=== PATIENT | male | born 1945 | race Caucasian/White ===

== ENCOUNTER 2019-03-29 11:37 | Observation (INO) | payer MEDICARE, SELFPAY ==
[2019-03-29] VITALS (8 sets, daily range): BP systolic 106–126; BP diastolic 59–84; PULSE 74–81; RESP 14–27; TEMP 36.6–37.2; O2SAT 94–100; BMI 23.5
--- NOTE | ~2019-03-29 | XR_ITS ---
EXAMINATION: XR chest 2V DATE: 03/29/2019 13:00 INDICATION: Weakness. Fall. TECHNIQUE: Frontal and lateral views of the chest were obtained. COMPARISON: Chest 2 views 01/31/2019 FINDINGS: There are interstitial opacities in left mid and lower lung zones. No pleural effusion or p neumothorax. The heart size is normal. There is a right internal jugular port with tip at superior ca voatrial junction. IMPRESSION: 1. Interstitial opacities in left mid and lower lung zones, consistent with mild pulmonary edema vers us mild atelectasis. Reviewed, dictated and finalized at location A. CTOR OF STRATEGIC COMMUNICATIONS IMPRESSION: 1. Interstitial opacities in left mid and lower lung zones, consistent with mil d pulmonary edema versus mild atelectasis.
[2019-03-29 12:23] LABS: Basophils Percent Auto 0.2 % (0.2-1.2); Eosinophils Absolute Auto 0.1 K/mm3 (0-0.3); Eosinophils Percent Auto 2.3 % (0-4.4); Hematocrit 35.8 % (42.0-52.0); Immature Granulocyte Absolute 0.05 K/mm3 (0.00-0.031); Immature Granulocyte Percent A 0.9 % (0-0.5); Lymphocytes Percent Auto 13.2 % (18.3-44.2); Mean Corpuscular HGB Conc 33.5 g/dl (32-36); Mean Corpuscular Hemoglobin 31.3 pg (26-34); Mean Corpuscular Volume 93.5 fl (80-100); Mean Platelet Volume 8.5 fl (7.4-10.4); Monocytes Absolute Auto 0.7 K/mm3 (0.1-0.6); Monocytes Percent Auto 12.3 % (2.6-8.5); Neutrophils Absolute Auto 3.8 K/mm3 (1.3-6.7); Neutrophils Percent Auto 71.1 % (45.5-73.1); Platelet Count Result 215 k/mm3 (150-375); Red Blood Count 3.83 M/mm3 (4.6-6.20); White Blood Count 5.3 K/mm3 (4.5-10.0)
[2019-03-29 12:34] LABS: Alanine Aminotransferase 40 U/L (4-50); Albumin Level 3.8 g/dL (3.5-5.1); Alkaline Phosphatase 132 U/L (38-126); Aspartate Amino Transferase 46 U/L (17-59); Bilirubin,Total 0.6 mg/dL (0.2-1.3); Blood Urea Nitrogen 17 mg/dL (9-20); Calcium 9.6 mg/dL (8.4-10.2); Carbon Dioxide 28 mmol/L (22-30); Chloride 91 mmol/L (98-107); Estimated CRCL calculation 76 ml/min; Estimated Glomerular Filt Rate > 60; Glucose 119 mg/dL (75-110); Potassium 4.7 mmol/L (3.4-5.0); Sodium 132 mmol/L (137-145)
--- NOTE | 2019-03-29 13:27 | ECG_ITS ---
Measurements Intervals [place] Rate: 74 P: 29 TX: 157 QRS: -3 QRSD: 89 T: 10 QT: 404 QTc: 451 Interpretive Statements SINUS RHYTHM BORDERLINE T WAVE ABNORMALITY- INFERIOR LEADS BASELINE ARTIFACT- I, II, III, AVR, AVL, AVF, V2, V4 BORDERLINE ECG Electronically Signed On 03-29-2019 14:17:26 [employer]EL[employer] WORKER by Reji Cotto D.O.
--- NOTE | 2019-03-29 13:30 | ED.WEAKNESS ---
HPI - Weakness General Chief complaint: Fall Stated complaint: weakness, fall Time Seen by Provider: 03/29/19 13:24 Source: patient, family (pt's ) and RN notes reviewed Mode of arrival: ambulatory Limitations: no limitations History of Present Illness HPI Narrative: Pt is a 73 y/o male with a Hx of esophageal cancer, who presents to the ED with c/o generalized weakness. According to the pt's , he was recently hospitalized for dehydration. She notes that he was subsequently placed in a rehabilitation facility, and states that he was discharged home yesterday. Pt's notes that he has been having increasing generalized weakness and trouble walking. She also states that the pt has had a decreased appetite and hasn't hardly eaten or drank anything recently. Pt's notes that he fell in their bathroom around 2 AM this morning due to him being too weak to hold himself up. He denies any injuries during the fall. Pt currently denies any fever, chills, vomiting, cough, or other symptoms. His notes that she called his PCP, Dr. De La Fuente, due to his symptoms, and states that she was advised to bring him to the ED to have him sent back to a rehabilitation facility. MD Complaint: generalized weakness Onset (ago): unknown Location: generalized Severity: severe Context: other (recent hospitalization) Associated symptoms: loss of appetite and other (decreased intake) Related Data Home Medications Medication Instructions Recorded Confirmed pantoprazole 40 mg PO QAM 01/31/19 03/29/19 acetaminophen 650 mg PO Q4-6H PRN 03/29/19 03/29/19 cyanocobalamin (vitamin B-12) 1,000 mcg DAILY 03/29/19 03/29/19 dabigatran etexilate 150 mg PO Q12H 03/29/19 03/29/19 loperamide 2 mg PO Q8-10H 03/29/19 03/29/19 metoprolol tartrate 25 mg PO DAILY 03/29/19 03/29/19 ondansetron HCl [Zofran] 4 mg PO Q6-8H PRN 03/29/19 03/29/19 sodium chloride 1,000 mg PO DAILY 03/29/19 03/29/19 Allergies Allergy/AdvReac Type Severity Reaction Status Date / Time No Known Allergies Allergy Verified 03/29/19 14:01 Review of Systems Review of Systems: All systems reviewed & are unremarkable except as noted in HPI and below Constitutional: Constitutional: Reports poor appetite, Reports weakness (generalized) and Reports other (decreased intake) ENT: Denies headache(s) and Denies neck pain Cardiovascular: Cardiovascular: Denies chest pain and Denies dyspnea Respiratory: Respiratory: Denies cough and Denies dyspnea Gastrointestinal: Gastrointestinal: Denies abdominal pain, Denies diarrhea, Denies nausea and Denies vomiting Musculoskeletal: Musculoskeletal: Denies back pain and Denies neck pain Neurologic: Denies headache(s) and Denies weakness PMFSH Past Medical History Medical History (Updated 03/29/19 @ 22:04 by Rae Blevins MD) Ankle fracture Anxiety Barretts esophagus Depression Esophageal cancer Frequent UTI Gastroesophageal reflux disease Hard of hearing History of kidney stones Hx of radiation therapy Hypertension TIA (transient ischemic attack) Uses feeding tube Surgical History Surgical History History of cardiac catheterization History of repair of rotator cuff History of surgical removal of skin lesion Social History Social History (Updated 02/01/19 @ 00:44 by Angela Reis NP) Social History: the patient lives with his Keila who is the power associate attorney. Patient is a full code. He has 3 children. The patient quit smoking in 1966 when he smoked a pack cigarettes a day. He retired from [employer] but was working [employer] up until he was diagnosed with the cancer. Smoking status: Former smoker Tobacco type: cigarettes Second hand tobacco smoke exposure: Yes Smoking end date: 02/26/1967 Alcohol intake: unknown Substance use: never Gender identity (if verbalized by the patient): Male Spiritual care concerns: No Agree to blood products: Yes Exa
[2019-03-29] MEDS: SODIUM CHLORIDE 0.9% IV 1,000 ML 999 ML IV CONT (13:56)
[2019-03-29 14:14] LABS: Add Urine Microscopic? YES; Appearance Urine Clear (Clear); Bacteria Urine Trace /hpf; Bilirubin Urine Negative (Negative); Blood Urine Negative (Negative); Color Urine Yellow (Yellow); Glucose Urine UA Negative (Negative); Ketones Urine Negative (Negative); Leukocyte Esterase Ur Negative LEU/UL (Negative); Mucus Urine Rare /lpf; Nitrate Urine Negative (Negative); Protein Urine 1+ mg/dL (Negative); RBC Urine 0-2 /hpf (0-2); Specific Grav Ur 1.019 (1.001-1.035); Squamous Epithelial Cell Urine Rare /hpf (Few); WBC Urine 0-3 /hpf
--- NOTE | 2019-03-29 15:29 | PCCCNOTE ---
Spoke with and patient regarding patients preferences for discharge disposition. states that patient is unsteady on feet and that she is unable to care for him at home until he is stronger. He was discharged from [facility] on 03/28/2019 after 10 days and had been hospitalized at [facility] for a week prior to that. If patient needs to go to rehab, patient and would prefer to go to [facility]. Spoke with Nadege at [facility]. She wants to review the case notes from [place] and patient needs obra screen/[employer] auth before she can commit to bed availability for this patient
[2019-03-29] MEDS: SODIUM CHLORIDE 0.9% IV 1,000 ML 125 ML IV CONT (17:39)
--- NOTE | 2019-03-29 17:43 | ADMGEN ---
This patient, Riley Marrero Jr, was admitted to 3 [facility] Surg Room 302-01. Patient/family oriented to hospital policies and general routines including ID bracelet, bed and alarms, visiting hours, pain management, procedures, bathroom and other care routines, personal items, smoking policy, room service/diet, and visiting hours. Valuables list has been completed. Information on how to activate the Rapid Response Team has been discussed. Patient/Family are encouraged to report perceived risks to care and to ask questions if they do not understand what they are told or what they should do.
[2019-03-30] MEDS: SODIUM CHLORIDE 0.9% IV 1,000 ML 125 ML IV CONT ×3 (01:37→17:35)
[2019-03-30 06:00] VITALS: BP 126/78; PULSE 82; RESP 18; TEMP 37.2; O2SAT 95
[2019-03-30] MEDS: DABIGATRAN ETEXILATE 150 MG CAPSULE PO ×2 (12:38→21:11)
[2019-03-30] MEDS: SODIUM CHLORIDE 1 GM TABLET PO (12:38)
[2019-03-30] MEDS: PANTOPRAZOLE 40 MG TABLET PO (12:39)
[2019-03-30] MEDS: CYANOCOBALAMIN 1,000 MCG TABLET 1000 MCG FEED TUBE (12:39)
[2019-03-30 14:00] VITALS: BP 130/73; PULSE 79; RESP 18; TEMP 37.5; O2SAT 98
[2019-03-30 14:09] VITALS: PULSE 82
[2019-03-30] MEDS: METOPROLOL TARTRATE 25 MG TABLET FEED TUBE (14:09)
--- NOTE | 2019-03-30 14:43 | PM.IMHP ---
H&P: HPI History of Present Illness Chief complaint: weakness Narrative: Date of visit 03/30/2019. 1000. Riley Marrero Jr is a 73 year old white male with recently treated esophageal CA with chemo and radiation and follow-up PET reported is no evidence of disease according to . He was hospitalized here in early January for debility and UTI. Was transferred to extended care and eventually hospital in [place] for further rehab. While there had a bout of atrial fibrillation and now on thrombin inhibitor Pradaxa and the also had EGD with esophageal dilatation had removal of scar tissue. He continued have poor p.o. intake and had been using tube feedings through his PEG to but none the less 48 hours. His discharge from the rehab unit had [place] 03/28/19 and since he has been home has not been eating or drinking much and early a.m. per fell and was unable to help him adequately and had him brought to the emergency room for evaluation. She thinks he still too weak and needs further rehab. there is been no fever no chills, diarrhea, or urinary symptoms. Just anorexia and failure to thrive Review of Systems Review of Systems: Narrative: Constitutional: As stated no fever no chills but decreased appetite both fluids and solids and he is not sure exactly how much weight he has lost Eye no deficient [place] Mouth of pharyngitis laryngitis Pulmonary no shortness breath wheezing or cough GI as per present illness some loose stools intermittently with the tube feedings no dysuria or hematuria stated Muscle skeletal no particular joint discomfort Integument no skin breakdown rashes Neuropsych no seizures no syncope just generalized weakness Remainder review of systems if not documented here were evaluated found to be negative [facility] Past Medical History Medical History (Updated 03/30/19 @ 14:53 by Eliceo Goodman MD) Ankle fracture Anxiety Barretts esophagus Depression Esophageal cancer Frequent UTI Gastroesophageal reflux disease Hard of hearing History of kidney stones Hx of radiation therapy Hypertension TIA (transient ischemic attack) Uses feeding tube Surgical History Surgical History History of cardiac catheterization History of repair of rotator cuff History of surgical removal of skin lesion Social History Social History (Updated 02/01/19 @ 00:44 by Angela Reis NP) Social History: the patient lives with his Keila who is the power automatic stacker. Patient is a full code. He has 3 children. The patient quit smoking in 1966 when he smoked a pack cigarettes a day. He retired from [employer] but was working [employer] up until he was diagnosed with the cancer. Smoking status: Former smoker Tobacco type: cigarettes Second hand tobacco smoke exposure: Yes Smoking end date: 02/26/1967 Alcohol intake: unknown Substance use: never Gender identity (if verbalized by the patient): Male Spiritual care concerns: No Agree to blood products: Yes Meds Home Medications and Allergies Home Medications Medication Instructions Recorded Confirmed Type pantoprazole 40 mg PO QAM 01/31/19 03/29/19 History acetaminophen 650 mg PO Q4-6H PRN 03/29/19 03/29/19 History cyanocobalamin (vitamin B-12) 1,000 mcg DAILY 03/29/19 03/29/19 History dabigatran etexilate 150 mg PO Q12H 03/29/19 03/29/19 History loperamide 2 mg PO Q8-10H 03/29/19 03/29/19 History metoprolol tartrate 25 mg PO DAILY 03/29/19 03/29/19 History ondansetron HCl [Zofran] 4 mg PO Q6-8H PRN 03/29/19 03/29/19 History sodium chloride 1,000 mg PO DAILY 03/29/19 03/29/19 History Allergies Allergy/AdvReac Type Severity Reaction Status Date / Time No Known Allergies Allergy Verified 03/29/19 14:01 Vital Signs Vital Signs - 24 hr 03/29/19 15:01 03/29/19 15:44 03/29/19 16:31 Temperature Pulse Rate 74 77 77 Respiratory Rate 15 14 15 Blood Pressure 120/70 110/59 L 11
[2019-03-30 20:39] VITALS: PULSE 73; RESP 18; O2SAT 92
[2019-03-30 21:23] VITALS: BP 104/58; PULSE 73; RESP 18; TEMP 37.1; O2SAT 96
[2019-03-31] MEDS: SODIUM CHLORIDE 0.9% IV 1,000 ML 125 ML IV CONT ×2 (00:20→08:25)
[2019-03-31] MEDS: METOPROLOL TARTRATE 25 MG TABLET FEED TUBE ×2 (00:46→12:36)
[2019-03-31 06:00] VITALS: BP 120/60; PULSE 74; RESP 18; TEMP 37.1; O2SAT 94
[2019-03-31] MEDS: DABIGATRAN ETEXILATE 150 MG CAPSULE PO ×2 (08:27→20:23)
[2019-03-31] MEDS: PANTOPRAZOLE 40 MG TABLET PO (08:27)
[2019-03-31] MEDS: CYANOCOBALAMIN 1,000 MCG TABLET 1000 MCG FEED TUBE (08:27)
[2019-03-31] MEDS: SODIUM CHLORIDE 1 GM TABLET PO (08:27)
[2019-03-31 12:36] VITALS: PULSE 64
[2019-03-31 14:00] VITALS: BP 112/64; PULSE 65; RESP 18; TEMP 36.4; O2SAT 94
[2019-03-31 14:51] VITALS: BMI 23.5
--- NOTE | 2019-03-31 15:34 | PCNSR ---
On 03/31/19, the student, Aleah Raya, provided care and completed [facility] documentation on this patient. I have reviewed the student's documentation and agree with the findings.
--- NOTE | 2019-03-31 16:42 | PM.IMPN ---
Progress Note: A&P Assessment and Plan (1) Weakness: Code(s): R53.1 - Weakness Status: Acute Assessment and Plan: Still generally debilitated and has been evaluated by PT and OT. Apparently today walked 100 ft with standby assist Doubt he will qualify for rehab but care coordination is petitioning insurance (2) Anorexia: Code(s): R63.0 - Anorexia Status: Acute Assessment and Plan: Patient still not eating well. When questioned further about swallowing on admission it is almost as if he is afraid to swallow and has become somewhat psychological coupled with his depression. EGD before showed no obstruction he was dilated too (3) Esophageal cancer: Code(s): C15.9 - Malignant neoplasm of esophagus, unspecified Status: Chronic Assessment and Plan: By history follow-up PET scan within the last month showed no residual disease, completed course of chemo and radiation follow-up by Dr. Redding [facility] (4) Atrial fibrillation: Code(s): I48.91 - Unspecified atrial fibrillation Status: Acute Assessment and Plan: By history while inpatient at [facility] and on low-dose beta-brad and anticoagulant which will continue (5) DVT prophylaxis: Code(s): Z29.9 - Encounter for prophylactic measures, unspecified Status: Acute Assessment and Plan: Pradaxa Subjective Date/time seen: 03/31/19 16:42 Interval history: Date of visit 03/31/2019. 73-year-old white male status post treatment for esophageal CA with follow-up PET scan negative per history of admitted with decreased oral intake weakness and fall at home within 24 hours of discharge of rehab unit at [place]. adament that patient needs more therapy and still having trouble swallowing. Apparently had EGD while at [place] with dilatation and removal is some scar tissue from previous radiation. Does have PEG tube to uses also. No real complaints today Exam Narrative: Exam Narrative: Blood pressure is 112/64 pulse is 66 afebrile Pupils equal reactive to light sclera anicteric Mouth mucosa less dry today Neck supple Lungs clear CV regular rate rhythm with occasional ectopic no murmurs Extremities without edema good distal pulses Abdomen soft nontender no mass, PEG the midline as before clean and dry Neuro alert pleasant cooperative no focal deficits generally weak Integument no skin breakdown rashes Affect very flat Objective Data Vital Signs Vital Signs: Vital Signs - 24 hr 03/30/19 20:39 03/30/19 21:23 03/31/19 06:00 Temperature 37.1 C 37.1 C Pulse Rate 73 73 74 Respiratory Rate 18 18 18 Blood Pressure 104/58 L 120/60 Pulse Oximetry 92 96 94 03/31/19 12:36 03/31/19 14:00 Temperature 36.4 C L Pulse Rate 64 65 Respiratory Rate 18 Blood Pressure 112/64 Pulse Oximetry 94 Intake/Output Intake/Output: Intake & Output 03/28/19 03/29/19 03/30/19 03/31/19 23:59 23:59 23:59 23:59 Intake Total 1740 4370 2760 Output Total 2276 900 Balance 1740 3276 3983 Meds/Results Medications: Active Medications Generic Name Dose Route Start Last Admin Trade Name Freq PRN Reason Stop Dose Admin Acetaminophen 650 mg 03/30/19 12:20 Tylenol Tablet FEED TUBE Q4-6H PRN Pain Cyanocobalamin 1,000 mcg 03/30/19 09:00 03/31/19 08:27 Vitamin B-12 Tab FEED TUBE 1,000 mcg DAILY LESIA Administration Dabigatran 150 mg 03/30/19 10:25 03/31/19 08:27 Pradaxa PO 150 mg Q12HR LESIA Administration Heparin Sodium (Beef Lung) 50 units 03/31/19 09:00 03/31/19 08:27 Heparin Flush 50 Units/5 Ml IV PUSH Not Given QAM LESIA Heparin Sodium (Beef Lung) 50 units 03/31/19 07:30 Heparin Flush 50 Units/5 Ml IV PUSH PRN PRN after intermittent infusion Heparin Sodium (Beef Lung) 50 units 03/31/19 07:30 Heparin Flush 50 Units/5 Ml IV PUSH PRN PRN after blood draws Heparin Sodium (Porcine) 500 unit
[2019-03-31 21:41] VITALS: BP 133/72; PULSE 72; RESP 18; TEMP 36.6; O2SAT 96
[2019-04-01 00:11] VITALS: PULSE 68
[2019-04-01] MEDS: METOPROLOL TARTRATE 25 MG TABLET FEED TUBE ×2 (00:11→12:59)
[2019-04-01 05:52] VITALS: BP 128/69; PULSE 69; RESP 16; TEMP 36.7; O2SAT 97
[2019-04-01] MEDS: SODIUM CHLORIDE 1 GM TABLET PO (08:22)
[2019-04-01] MEDS: CYANOCOBALAMIN 1,000 MCG TABLET 1000 MCG FEED TUBE (08:22)
[2019-04-01] MEDS: PANTOPRAZOLE 40 MG TABLET PO (08:24)
[2019-04-01] MEDS: DABIGATRAN ETEXILATE 150 MG CAPSULE PO (08:24)
[2019-04-01 08:30] VITALS: BP 108/64; PULSE 80; RESP 26; TEMP 37.4; O2SAT 96
[2019-04-01 12:55] VITALS: BP 124/70; PULSE 74
[2019-04-01 12:59] VITALS: PULSE 74
[2019-04-01 14:00] VITALS: BP 126/67; PULSE 68; RESP 26; TEMP 36.8; O2SAT 94
--- NOTE | 2019-04-01 14:35 | PM.DS ---
DS: Diagnosis Admitting Diagnosis Admitting Diagnosis: Weakness Discharge Diagnosis (1) Weakness: Code(s): R53.1 - Weakness Status: Acute Assessment and Plan: Still generally debilitated and has been evaluated by PT and OT. Apparently today walked 100 ft with standby assist did not qualify for SNF, so home with HH today. (2) Anorexia: Code(s): R63.0 - Anorexia Status: Acute Assessment and Plan: Patient still not eating well. When questioned further about swallowing on admission it is almost as if he is afraid to swallow and has become somewhat psychological coupled with his depression. EGD before showed no obstruction (3) Esophageal cancer: Code(s): C15.9 - Malignant neoplasm of esophagus, unspecified Status: Chronic Assessment and Plan: By history follow-up PET scan within the last month showed no residual disease, completed course of chemo and radiation [facility] (4) Atrial fibrillation: Code(s): I48.91 - Unspecified atrial fibrillation Status: Acute Assessment and Plan: By history while inpatient at [facility] and on low-dose beta-brad and anticoagulant which will continue (5) DVT prophylaxis: Code(s): Z29.9 - Encounter for prophylactic measures, unspecified Status: Acute Assessment and Plan: Pradaxa DS: Summary Hospital Course Reason for hospitalization: weakness Hospital Course: Treated for dehydration with IVF. Empiric antibiotics were discontinued when urine and blood cultures were negative. He had some diarrhea with his TF as outpatient, but that resolved as inpatient. He was falling at home, but was ambulating with PT with standby assit by day of discharge. Status at Discharge Overall status at discharge: patient is back to baseline Time Spent with Patient Time attestation: Total time spent providing and/or coordinating discharge services: Exam Narrative: Exam Narrative: Pupils equal reactive to light sclera anicteric Oral mucosa pink and moist Neck supple Lungs clear CV regular rate rhythm with occasional ectopy no murmurs Extremities without edema good distal pulses Abdomen soft nontender no mass, PEG site clean Neuro alert pleasant cooperative no focal deficits generally weak Integument no skin breakdown rashes Affect very flat DS: Data Data Completed and Pending Labs on day of discharge: Preliminary micro results at discharge 03/29/19 20:33 Blood Culture - Preliminary Blood 03/29/19 20:33 Blood Culture - Preliminary Blood Discharge Plan Discharge Attending physician on discharge: Eliceo Goodman Discharging Clinician: Miguel Sprague Patient Disposition: Home Health Service Activity: as tolerated Diet: as tolerated Discharge Instructions: Per Care Coordination, pt. will discharge home with [facility] . continue tube feedings 2-3 times per day Patient Instructions: Antibiotic Form, Weakness (DC) Stand Alone Forms: General Discharge Information Follow-up/Referrals: Fidel De La Fuente MD [Primary Care Provider] - 2 Weeks Emery Redding DO [Physician] - Keep Reg. Scheduled Appt. Discharge Medications: New mupirocin 2 % ointment 1 applic TOPICAL BID Qty: 15 RF: 0 Continued pantoprazole 40 mg Tablet,Delayed Release (Dr/Ec) 40 mg PO QAM RF: 0 loperamide 2 mg Capsule 2 mg PO Q8-10H RF: 0 ondansetron HCl [Zofran] 4 mg Tablet 4 mg PO Q6-8H PRN (Reason: Nausea) RF: 0 sodium chloride 1 gram Tablet 1,000 mg PO DAILY RF: 0 cyanocobalamin (vitamin B-12) 1,000 mcg Tablet 1,000 mcg DAILY RF: 0 acetaminophen 650 mg Tablet Extended Release 650 mg PO Q4-6H PRN (Reason: Pain) RF: 0 dabigatran etexilate 150 mg Capsule 150 mg PO Q12H RF: 0 Changed metoprolol tartrate 25 mg Tablet 25 mg PO BID Qty: 0 RF: 0 Date of admission: 03/29/19 16:13 Primary Car
--- NOTE | 2019-04-01 15:03 | PC.NURSE ---
On 04/01/19, the student, [Erika Paz ], provided care and completed [facility] documentation on this patient. I have reviewed the student's documentation and agree with the findings.
[2019-04-01] MEDS: HEPARIN SOD FLUSH 500 UNITS/5 ML SYRINGE IV PUSH (15:22)
== END 2019-04-01 17:33 | disposition home health service (06) ==
LOC: ANHED 16:07 → ANH3MEDSUR 16:54
PROVIDERS: Emergency Medicine; Admitting Provider Family Medicine; Emergency Provider Emergency Medicine; PCP Family Medicine; Visit Provider Internal Medicine
DX: E86.0 Dehydration (principal); R53.1 Weakness; R63.0 Anorexia; C15.9 Malignant neoplasm of esophagus, unspecified; Z93.1 Gastrostomy status; I48.91 Unspecified atrial fibrillation; F32.9 Major depressive disorder, single episode, unspecified; K21.9 Gastro-esophageal reflux disease without esophagitis; W19.XXXA Unspecified fall, initial encounter; Z79.02 Long term (current) use of antithrombotics/antiplatelets; Z87.891 Personal history of nicotine dependence; Z86.73 Personal history of transient ischemic attack (TIA), and cerebral infarction without residual deficits; Z92.21 Personal history of antineoplastic chemotherapy; Z92.3 Personal history of irradiation
CPT/HCPCS: 36415; 71046; 80053; 81001; 85025; 87040; 87081; 93005; 96360; 96361; 97110; 97116; 97161; 97165; 97530; 97535; 99285; A9270; G0378; J1642; J7030

== ENCOUNTER 2019-04-11 11:55 | Outpatient (CLI) | payer MEDICARE, SELFPAY ==
[2019-04-11 12:56] LABS: Alanine Aminotransferase 22 U/L (4-50); Albumin Level 3.9 g/dL (3.5-5.1); Alkaline Phosphatase 127 U/L (38-126); Aspartate Amino Transferase 34 U/L (17-59); Bilirubin,Total 0.6 mg/dL (0.2-1.3); Blood Urea Nitrogen 16 mg/dL (9-20); Calcium 9.9 mg/dL (8.4-10.2); Carbon Dioxide 28 mmol/L (22-30); Chloride 95 mmol/L (98-107); Estimated Glomerular Filt Rate > 60; Glucose 117 mg/dL (75-110); Potassium 4.8 mmol/L (3.4-5.0); Sodium 136 mmol/L (137-145)
== END 2019-04-11 11:56 | disposition home or self-care (01) ==
PROVIDERS: PCP Family Medicine; Visit Provider Family Medicine
DX: E86.0 Dehydration (principal)
CPT/HCPCS: 36415; 80053

== ENCOUNTER 2019-09-13 16:04 | Emergency (ER) | payer MEDICARE, SELFPAY ==
[2019-09-13 16:18] VITALS: BP 132/74; PULSE 79; RESP 18; TEMP 37.1; O2SAT 97
== END 2019-09-13 16:25 | disposition left against medical advice (07) ==
PROVIDERS: PCP Family Medicine
DX: R04.0 Epistaxis (principal)
CPT/HCPCS: 99199

== ENCOUNTER → 2019-12-02 10:16 | Outpatient (REF) | payer MEDICARE, SELFPAY | LOC: ANHLAB 10:16 | PROVIDERS: PCP Family Medicine; Visit Provider Nurse Practitioner | DX: D49.2 Neoplasm of unspecified behavior of bone, soft tissue, and skin (principal) | CPT/HCPCS: 88305; 88312; 88313 ==

== ENCOUNTER → 2020-01-26 07:42 | Outpatient (REF) | payer MEDICARE, SELFPAY | LOC: ANHLAB 07:42 | PROVIDERS: PCP Family Medicine; Visit Provider Nurse Practitioner | DX: C44.622 Squamous cell carcinoma of skin of right upper limb, including shoulder (principal); C44.619 Basal cell carcinoma of skin of left upper limb, including shoulder | CPT/HCPCS: 88305; 88331 ==

== ENCOUNTER 2020-04-30 15:31 | Outpatient (CLI) | payer MEDICARE, SELFPAY | END 2020-04-30 15:32 | disposition home or self-care (01) | LOC: ANHCOVIDVC 15:31 | PROVIDERS: PCP Family Medicine | DX: Z23 Encounter for immunization (principal) | CPT/HCPCS: 0001A; 91300 ==

== ENCOUNTER 2020-05-21 15:30 | Outpatient (CLI) | payer MEDICARE, SELFPAY | END 2020-05-21 15:31 | disposition home or self-care (01) | LOC: ANHCOVIDVC 15:30 | PROVIDERS: PCP Family Medicine | DX: Z23 Encounter for immunization (principal) | CPT/HCPCS: 0002A; 91300 ==

== ENCOUNTER 2020-06-05 10:09 | Emergency (ER) | payer MEDICARE, SELFPAY ==
[2020-06-05 10:32] VITALS: BP 130/80; PULSE 76; RESP 18; TEMP 37.3; O2SAT 96
--- NOTE | 2020-06-05 12:13 | PC.NURSE ---
call to waiting room. No answer.
--- NOTE | 2020-06-05 12:18 | PC.NURSE ---
Call to waiting room. No answer.
--- NOTE | 2020-06-05 12:36 | PC.NURSE ---
Call to waiting room. Checked bathroom and surrounding areas in waiting room. No answer x3 attempts. Attempt to call pt's visitor cell phone and goes directly to voicemail. Assume pt left without being seen.
== END 2020-06-05 12:36 | disposition left against medical advice (07) ==
LOC: ANHED 13:03
PROVIDERS: PCP Family Medicine
DX: Z53.21 Procedure and treatment not carried out due to patient leaving prior to being seen by health care provider (principal)
CPT/HCPCS: 99199

== ENCOUNTER 2020-11-30 10:47 | Outpatient (CLI) | payer MEDICARE, SELFPAY ==
--- NOTE | ~2020-11-30 | CT_ITS ---
EXAMINATION: CT chest high resolution [facility] EXAM DATE: 11/30/2020 11:28 INDICATION: R06.02 - Shortness of breath. Esophageal cancer. TECHNIQUE: Spiral CT of the chest without contrast. Axial, coronal and sagittal images of the chest were reviewed. Coronal maximum intensity pixel images of chest reviewed. The dose-length product ( DLP) for this examination was 250.63 mGy-cm. The exposure was tailored according to patient size (au to mA exposure control), and iterative reconstruction (ASIR) was used as additional dose reduction [place]. Comparison is made to prior examination from 09/03/2018. FINDINGS: There is a right-sided Chemo-Port. The SVC appears smaller in caliber than in 2019. There is subsegmental right lower lobe atelectasis/scarring, volume loss and calcification within this, has developed compared to 2019 CT. There is trace right pleural effusion and pericardial effusion. No i ntralobular septal thickening on the HRCT. Tracheobronchial tree is patent. There is no mediastinal , hilar or axillary lymphadenopathy. There is no pneumothorax. Heart normal in size. There is m oderate to severe coronary arterial calcification, arterial sclerosis. There is small sliding gastroe sophageal hiatal hernia. There is moderate thoracic spondylosis without osteoblastic or osteolytic l esions identified. IMPRESSION: 1. Right lower lobe medial segmental scarring/atelectasis. 2. Trace pericardial, right pleural effusions. 3. Small hiatal hernia. Reviewed, dictated and finalized at location A.
== END 2020-11-30 10:48 | disposition home or self-care (01) ==
LOC: ANHIMG 10:55
PROVIDERS: PCP Family Medicine; Visit Provider Internal Medicine Critical Care Medicine
DX: R06.02 Shortness of breath (principal); K44.9 Diaphragmatic hernia without obstruction or gangrene; J90 Pleural effusion, not elsewhere classified
CPT/HCPCS: 71250

== ENCOUNTER 2020-12-01 12:39 | Outpatient (CLI) | payer MEDICARE, SELFPAY ==
--- NOTE | 2020-12-06 13:33 | WPDSIXMINUTE ---
Six Minute Walk Procedure Procedure Performed Pulmonary Stress Test (6 min walk) Six Minute Walk This 6 minute walk test was carried out with the patient breathing ambient air. The pre walk oxyhemoglobin saturation was measured at 95%. The patient was able to walk 365 m with no stops in between. The post walk perceived dyspnea was 2 on the dyspnea scale. The oxyhemoglobin saturation remained over 92% throughout the walk. Impression: No evidence of oxyhemoglobin desaturation on this test.
== END 2020-12-01 12:40 | disposition home or self-care (01) ==
LOC: ANHPFT 12:40
PROVIDERS: PCP Family Medicine; Visit Provider Internal Medicine Critical Care Medicine
DX: R06.02 Shortness of breath (principal)
CPT/HCPCS: 94618

== ENCOUNTER → 2021-03-04 11:23 | Outpatient (CLI) | payer MEDICARE, SELFPAY ==
[2021-03-04 14:18] LABS: Influenza Control Positive
[2021-03-05 22:39] LABS: SARS-CoV-2 RNA PCR Negative
== END ==
PROVIDERS: PCP Family Medicine; Visit Provider Physician Assistant
DX: R05.9 Cough, unspecified (principal); R68.89 Other general symptoms and signs; Z20.822 Contact with and (suspected) exposure to COVID-19
CPT/HCPCS: 87804; C9803; U0003; U0005

== ENCOUNTER 2021-03-09 11:06 | Emergency (ER) | payer MEDICARE, SELFPAY ==
[2021-03-09 11:16] VITALS: BP 117/77; PULSE 80; RESP 16; TEMP 37.2; O2SAT 97
--- NOTE | 2021-03-09 11:44 | ED.URI ---
HPI - URI/Sore Throat General Chief Complaint: Upper Respiratory Infection Stated Complaint: chest congestion Time Seen by Provider: 03/09/21 11:33 Source: patient and RN notes reviewed Mode of arrival: ambulatory Limitations: no limitations History of Present Illness HPI Narrative: Patient presents today complaining of 1 to 2-week history of chest congestion with mildly productive cough. States his sputum had been brownish but is now clear and thick. He also reports mild intermittent shortness of breath. States his cough and chest congestion is worse at night and improves throughout the day. He has been taking Tylenol and Mucinex without much relief, but has run out of both. Denies history of asthma or COPD. He had a negative COVID-19 PCR on 03/04/2021. MD elicited complaint: cough and other (Chest congestion) Related Data Home Medications Medication Instructions Recorded Confirmed fludrocortisone 0.1 mg tablet 0.1 mg PO DAILY tablet 10/29/20 03/09/21 Allergies Allergy/AdvReac Type Severity Reaction Status Date / Time No Known Allergies Allergy Verified 03/09/21 11:32 Review of Systems Review of Systems: CONSTITUTIONAL: Denies body aches, fever, chills, or sweats. EYES: Denies visual changes, redness, or discharge. ENT: Denies rhinorrhea, sore throat, or otalgia.+ Nasal congestion CARDIOVASCULAR: Denies chest pain, palpitations, or edema. RESPIRATORY: + Cough, shortness of breath, chest congestion GASTROINTESTINAL: Denies abdominal pain, nausea, vomiting, or diarrhea. GENITOURINARY: Denies dysuria or hematuria. SKIN: Denies rash, itching, or wounds. MUSCULOSKELETAL: Denies back pain, joint pain, or myalgia. NEUROLOGIC: Denies headache, numbness, tingling, or weakness. PSYCH: Denies depression or anxiety. 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 Patient is a full code. He has 3 children. The patient quit smoking in 1966 when he smoked a pack cigarettes a day. He retired from [employer] but was working [employer] up until he was diagnosed with the cancer. Smoking packs per day: 0.5 Smoking cigarettes per day: 10.0 Years smoked: 7 Smoking pack-years: 3.50 Smoking status: Former smoker (smoked 9 years, quit decades ago) Tobacco type: cigarettes Second hand tobacco smoke exposure: No Smoking end date: 02/26/1967 Alcohol intake: never Substance use: never Substance use type: does not use Gender identity (if verbalized by the patient): Male Spiritual care concerns: No Agree to blood products: Yes Comments At time of signature, I have reviewed and agree with nursing past medical, surgical, social and family history unless otherwise noted. Please see nursing chart for further information. There is no relevant family history pertinent to the presenting complaint Exam Narrative: GENERAL: We
== END 2021-03-09 11:50 | disposition home or self-care (01) ==
PROVIDERS: Emergency Provider Nurse Practitioner; PCP Family Medicine
DX: J40 Bronchitis, not specified as acute or chronic (principal); Z87.891 Personal history of nicotine dependence; K22.70 Barrett's esophagus without dysplasia; Z85.828 Personal history of other malignant neoplasm of skin; Z85.01 Personal history of malignant neoplasm of esophagus; K21.9 Gastro-esophageal reflux disease without esophagitis; I10 Essential (primary) hypertension; Z86.73 Personal history of transient ischemic attack (TIA), and cerebral infarction without residual deficits; Z92.3 Personal history of irradiation
CPT/HCPCS: 99213; G0463

== ENCOUNTER 2021-03-29 09:09 | Outpatient (CLI) | payer MEDICARE, SELFPAY ==
--- NOTE | ~2021-03-29 | XR_ITS ---
XR chest 2V DATE: 03/29/2021 09:32 INDICATION: Cough, congestion, shortness of breath TECHNIQUE: 2 views COMPARISON: 03/29/2021 view chest 11/30/2020 CT chest high resolution scan FINDINGS: Normal heart size. There is aortic calcification and unfolding. Right-sided internal jugular vein Port-A-Cath catheter tip overlies the upper right atrium. No pulmonary infiltrate or consolidation, pleural effusion or pulmonary vascular congestion or pneumo thorax. There is diffuse osteopenia. There is degenerative spurring of the thoracic spine. IMPRESSION: No active cardiopulmonary disease Reviewed, dictated and finalized at location B. ZING MACHINE OPERATOR HEAD END
== END 2021-03-29 09:10 | disposition home or self-care (01) ==
PROVIDERS: PCP Family Medicine; Visit Provider Family Medicine
DX: R05.9 Cough, unspecified (principal)
CPT/HCPCS: 71046

== ENCOUNTER 2021-10-19 08:22 | Outpatient (CLI) | payer MEDICARE, SELFPAY ==
--- NOTE | 2021-10-30 22:35 | WPDHOMESLEEP ---
Sleep Study - Home Unattended Date of Study: 10/19/21 Ordering Provider: Arianne Berry MD Interpreting Provider: Kely Cummings, DO Home Sleep Study Type: Apnea Link Air Height: 1.73 m Weight: 93.44 kg Body Mass Index: 31.3 Neck Circumference (inches): 16.5 [place]: 6 Reason for Sleep Study Previously diagnosed PITA. Paroxysmal atrial fibrillation Sleep History The patient is a 76-year-old male with anxiety, depression, history of esophageal cancer, GERD, hypertension, history of TIA, paroxysmal atrial fibrillation and previously diagnosed sleep apnea that had a sleep study ordered by his reception manager for evaluation of sleep apnea. The patient is currently retired. He denies awakening from sleep short of breath. He occasionally awakens at night with heartburn, belching or cough. He occasionally snores loud enough that others complain. He rarely has trouble sleeping when he has a cold. He denies waking up gasping for air throughout the night. He occasionally has breathing problems at night observed by himself or others. He denies sweating excessively at night. He denies having heart palpitations or irregular heartbeats during the night. He rarely falls asleep during the day and never while driving. He denies sleep paralysis, cataplexy and hypnagogic / hypnopompic hallucinations. He denies having trouble at school or work due to sleepiness. He denies feeling afraid of going to sleep. He rarely has nightmares. He rarely remembers his dreams. He rarely has thoughts racing through his mind. He rarely feels sad or depressed but occasionally has anxiety. He denies having muscular tension. He denies noticing parts of his body jerk. He rarely kicks during the night. He occasionally has crawling and aching feelings in his legs but will rarely have leg pain during the night. He rarely grinds his teeth during sleep but never awakens with morning jaw pain. He is occasionally bothered by pain during the day but denies being awakened by pain during the night. He rarely wakes up feeling stiff in the morning. He rarely wakes up with sore achy muscles. He occasionally wakes up with pain in the neck, spine or other joints. He goes to bed at 1:00 a.m. on both weekdays and weekends. It takes him 10-15 minutes to fall asleep. He does not typically wake up throughout the night. He wakes up between 8-9 a.m. on both weekdays and weekends. He typically gets 7-8 hours of sleep per night. He will stay and for 5-10 minutes after waking up in the morning. He currently lives with his . He does not consume any caffeinated beverages within 2 hours of bedtime. He does not engage in physical exercise before bedtime. He will occasionally read and watch television before falling asleep. He will take naps in the afternoon or the evening and they are refreshing. He drinks 1 cup of a caffeinated beverage per day. He is a former smoker. He denies alcohol and recreational drug use. 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
[2021-10-30 22:47] VITALS: BMI 31.3
--- NOTE | 2022-05-10 11:07 | SLEEP ---
pt asked we not call he is going through chemo therapy
== END 2021-10-20 10:26 | disposition home or self-care (01) ==
LOC: ANHCSM 08:22
PROVIDERS: PCP Family Medicine; Visit Provider Internal Medicine Critical Care Medicine
DX: G47.10 Hypersomnia, unspecified (principal); G47.33 Obstructive sleep apnea (adult) (pediatric)
CPT/HCPCS: 95806

== ENCOUNTER 2021-11-02 12:35 | Outpatient (CLI) | payer MEDICARE, SELFPAY ==
--- NOTE | 2021-11-02 12:39 | ECHO_ITS ---
Patient Info Name: Riley Marrero Age: 76 years : 1945 Gender: Male Ht: 68 in Wt: 202 lbs BSA: 2.12 m2 HR: 60 bpm BP: 138 / 83 mmHg Technical Quality: Good Exam Date: 11/02/2021 1:08 PM Exam Location: [facility] Patient Status: Outpatient Admit Date: 11/02/2021 Staff Ordering Physician: Reji Cotto DO Bench Tool Maker: Rema Harrison RDCS Attending Provider: Reji Cotto DO Referring Physician: Yadile NAIR; Exam Type: CA echo doppler color flow Study Info Indications I48.0 - Paroxysmal atrial fibrillation Complete two-dimensional, color flow and Doppler transthoracic echocardiogram is performed. Summary 1. Complete two-dimensional, color flow and Doppler transthoracic echocardiogram is performed. 2. Left ventricular chamber dimension is normal. 3. Left ventricular systolic function is normal, estimated at 60-65%. 4. The left ventricular diastolic function is grade I diastolic dysfunction. 5. E/e' 12 is mildly elevated. 6. Left atrial chamber dimension is mildly enlarged. Left Ventricle E/e' 12 is mildly elevated. Left ventricular chamber dimension is normal. Left ventricular systolic function is normal, estimated at 60-65%. The left ventricular diastolic function is grade I diastolic dysfunction. Right Ventricle Right ventricular systolic function is normal and with normal TAPSE 2.3 cm. Right ventricular chamber dimension is normal. Left Atria Left atrial chamber dimension is mildly enlarged. Right Atria Right atrial chamber dimension is normal. Aortic Valve The aortic valve is trileaflet. There is no aortic valve stenosis. There is no aortic valve regurgitation. Pulmonic Valve There is no pulmonic regurgitation. Mitral Valve There is no mitral valve stenosis. There is no mitral valve regurgitation. Tricuspid Valve There is no tricuspid valve regurgitation. Pericardium/Pleural There is no pericardial effusion. Inferior Vena Cava Normal inferior vena cava with >50% collapse upon inspiration consistent with normal right atrial pressure, 5 mmHg. Aorta The aortic root size at the sinus of Valsalva is normal. Left Ventricular Outflow Tract Name Value Normal LVOT 2D LVOT Diameter 2.1 cm LVOT Doppler LVOT Peak Gradient 3 mmHg LVOT Mean Gradient 2 mmHg LVOT VTI 19 cm LVOT VTI/AV VTI Ratio 0.9 LVOT Stroke Volume 64 ml LVOT CO 3.7 l/min LVOT CI 1.7 l/min/m2 Mitral Valve Name Value Normal MV Doppler MV Peak Gradient 4 mmHg MV Mean Gradient 1 mmHg MV Decel [place] 384 cm/s2 MV PHT
== END 2021-11-02 12:36 | disposition home or self-care (01) ==
PROVIDERS: PCP Family Medicine; Visit Provider Internal Medicine Cardiovascular Disease
DX: I48.0 Paroxysmal atrial fibrillation (principal); I51.89 Other ill-defined heart diseases
CPT/HCPCS: 93306

== ENCOUNTER 2022-02-03 09:15 | Outpatient (CLI) | payer MEDICARE, SELFPAY ==
--- NOTE | ~2022-02-03 | CT_ITS ---
EXAMINATION:CT diagnostic chest wo con DATE: 02/03/2022 10:31 INDICATION: Pulmonary nodules. TECHNIQUE: Computed tomography (CT) of the chest was performed without intravenous contrast. Automate d exposure control and iterative reconstruction technique were employed. The dose-length product (DLP ) was 345.75 mGy-cm. COMPARISON: Chest CT 11/30/2020 FINDINGS: There is widespread septal thickening in the lungs with a lower lung predominance associate d with mild groundglass opacities. There is an 18 mm nodule in right upper lobe with an air bronchogr am. There are airspace opacities with volume loss in paramediastinal right lower lobe, consistent wit h scarring. Calcified right lung nodules and calcified mediastinal lymph nodes are consistent with ol d granulomatous disease. There are stable 4 mm and 3 mm nodules in left lower lobe. There is mild bro nchiectasis in the lower lobes. No honeycombing. There is a stable 3 mm nodule in lingula. There is s table pleural thickening in posterior right hemithorax. No pleural effusion. The heart size is normal . There are coronary artery calcifications. No pericardial effusion. There is a right internal jugula r port with tip in right atrium. There is bilateral gynecomastia. There are bridging endplate osteoph ytes at multiple levels in the spine, consistent with diffuse idiopathic skeletal hyperostosis (DISH) . IMPRESSION: 1. New 18 mm nodule in right lung upper lobe, which may be infection or malignancy. Consider noncontr ast low-dose chest CT in one month. 2. Mild chronic interstitial lung disease in a pattern of nonspecific interstitial pneumonia (NSIP). Reviewed, dictated and finalized at location A. VITIES ASSISTANT IMPRESSION: 1. New 18 mm nodule in right lung upper lobe, which may be infection or maligna ncy. Consider noncontrast low-dose chest CT in one month. 2. Mild chronic interstitial lung disease in a pattern of nonspecific interstit ial pneumonia (NSIP).
--- NOTE | 2022-02-03 17:11 | WPDPFTINT ---
PFT Procedure Performed PFT Procedure Performed Spirometry with Pre/Post Bronchodilator Plethysmography (Lung Vol) Diffusing Cap (DLCO) Flow Vol Loop PFT Interpretation This is a pulmonary function test with pre and post-bronchodilator spirometry, plethysmography and diffusing capacity. The test was performed and results interpreted in accordance with the 2019 and 2005 ATS/ERS Task Force guidelines respectively using the Global Lung Function Initiative-2012 reference equations. Patient demonstrated good effort and cooperation. Reproducibility criteria were met. The quality of the pre bronchodilator spirometry maneuver was Grade A and post bronchodilator spirometry maneuver was Grade A. Findings: Spirometry: The contour the inspiratory and expiratory flow tracing are normal. The pre bronchodilator FVC is 2.75 L, 74% predicted. The pre bronchodilator FEV1 is 2.03 L, 73% predicted. The pre bronchodilator FEV1: FVC ratio 74%. The post bronchodilator FVC is 2.78 L, representing a 1% increase. The post bronchodilator FEV1 is 2.16 L, representing a 6% increase. The post bronchodilator FEV1: FVC ratio 78%. Plethysmography: The total lung capacity is 4.26 L, 64% predicted. The functional residual capacity is 2.18 L, 61% predicted. The residual volume is 1.41 L, 56% predicted. Diffusion capacity: The diffusing capacity unadjusted for hemoglobin and carboxyhemoglobin is 15.9, 68% predicted. The diffusing capacity adjusted for alveolar volume is 4.20, 110% predicted. Impression: There is a mild restrictive ventilatory abnormality. The spirometry is normal without evidence of an obstructive abnormality. There is no significant improvement after inhaling a single dose of albuterol. The diffusing capacity is normal. There are no prior studies for comparison
== END 2022-02-03 09:16 | disposition home or self-care (01) ==
PROVIDERS: PCP Family Medicine; Visit Provider Internal Medicine Critical Care Medicine
DX: R91.8 Other nonspecific abnormal finding of lung field (principal); J98.11 Atelectasis; R94.2 Abnormal results of pulmonary function studies; J84.9 Interstitial pulmonary disease, unspecified
CPT/HCPCS: 71250

== ENCOUNTER 2023-10-23 15:49 | Outpatient (CLI) | payer MEDICARE, SELFPAY ==
[2023-10-23 20:39] LABS: SARS-CoV-2 RNA PCR Positive (Negative)
== END 2023-10-23 15:50 | disposition home or self-care (01) ==
LOC: ANHLAB 15:50
PROVIDERS: PCP Family Medicine; Visit Provider Family Medicine
DX: R05.9 Cough, unspecified (principal); Z20.822 Contact with and (suspected) exposure to COVID-19
CPT/HCPCS: 87635

== ENCOUNTER → 2024-02-01 12:10 | Outpatient (REF) | payer MEDICARE, SELFPAY | LOC: ANHLAB 12:10 | PROVIDERS: PCP Family Medicine; Visit Provider Physician Assistant Surgical | DX: C44.529 Squamous cell carcinoma of skin of other part of trunk (principal); C44.622 Squamous cell carcinoma of skin of right upper limb, including shoulder | CPT/HCPCS: 88305 ==

== ENCOUNTER 2024-08-06 13:27 | Outpatient (CLI) | payer MEDICARE, SELFPAY ==
--- NOTE | ~2024-08-06 | US_ITS ---
EXAMINATION: US carotid duplex BI DATE: 08/06/2024 14:04 INDICATION: Tenderness and giddiness TECHNIQUE: Grayscale, color Doppler, and pulsed Doppler images of the cervical carotid arteries were obtained. The degree of vessel stenosis is placed in one of the following categories: normal, <50%, 5 0-69%, >=70% but less than near-occlusion, near-occlusion, or total occlusion. Note that percent sten osis relative to normal distal artery lumen diameter is indirectly measured from velocity measurement s as described by Seamus, et al. Radiology 2003; 229:340-346. Notes: Normal: Peak systolic velocity <125 centimeters/sec and no plaque <50%. Peak systolic velocity <125 ( EDV <40; ICA/CCA PSV ratio <2.0; used these factors only a tandem lesions or low cardiac output or co ntralateral disease) 50-69 %: PSV 125-230 (EDV 40-100; ratio 2-4) >= 70% but less than near occlusion: PSV greater than 230 (EDV > 100; ratio> 4.0) Near Occlusion: PSV that is variable; markedly narrowed lumen Occlusion: Absent flow on color/spectral Doppler and no lumen on jara scale. COMPARISON: None. FINDINGS: RIGHT: The right common carotid artery (CCA) peak systolic velocity (PSV) is 83 cm/s. The right internal car otid artery (ICA) PSV is 53 cm/s. The right ICA end-diastolic velocity (EDV) is 12 cm/s. The right IC A/CCA PSV ratio is 0.8. The external carotid artery (ECA) PSV is 47 cm/s. There is antegrade flow in the right vertebral artery. LEFT: The left CCA PSV is 75 cm/s. The left ICA PSV is 57 cm/s. The left ICA EDV is 21 cm/s. The left ICA/C CA PSV ratio is 0.9. The ECA PSV is 70 cm/s. There is antegrade flow in the left vertebral artery. IMPRESSION: 1. Less than 50% stenosis in the right internal carotid artery by sonographic criteria. 2. Less than 50% stenosis in the left internal carotid artery by sonographic criteria. Reviewed, dictated and finalized at location B. IMPRESSION: 1. Less than 50% stenosis in the right internal carotid artery by sonographic c diaz. 2. Less than 50% stenosis in the left internal carotid artery by sonographic cr kathy.
--- OUTSIDE RECORDS SUMMARY | 2024-08-06 15:41 | XMS_ITS | Encounter Summary ---
Author Organization [facility] Address [address] [place] [address] Care Team Providers Care Telesales Team Leader Name Role Phone Fidel De La Fuente MD Primary Care Provider [phone] Encounter Details Date Type Department Care Team (Late st Contact Info) Description 01/05/2021 Lab Requisition [facility] Derm[facility] [address] [place] [address] Geoffrey Antunez MD [address] [place] [address] Social History Tobacco Use Types Packs/Day Years Used Date Smoking Tobacco: Never Assessed Sex and Gender Information Value Date Recorded Sex Assigned at Not on file Legal Sex Male 4:34 AM LIVESTOCK AGENT Gender Identity Not on file Sexual Orientation Not on file documented as of this encounter Plan of Treatment Not on file documented as of this encounter Procedures Procedure Name Priority Date/Time Associated Diagnosis Comments DERMATOPATHOLOGY Routine 01/04/2021 12:0 0 AM LIVESTOCK AGENT documented in this encounter Results * DERMATOPATHOLOGY (01/04/2021 12:00 AM LIVESTOCK AGENT) Case Report Dermatopathology Report Case: [id number] Authorizing Provider: Geoffrey Antunez MD Collected: 01/04/2021 12:00 AM Ordering Location: [facility] Received: 01/05/2021 11:52 AM Pathologist: Magali Leonard MD Specimens: A) - Skin, left posterior ear superior B) - Skin, left posterior ear medial C) - Skin, right forehead D) - Skin, left mid ext FA 9:49 AM LIVESTOCK AGENT DERMATOPATHOLOGY LABORATORY Final Diagnosis Specimen A. SKIN, left posterior ear superior: SEBORRHEIC KERATOSIS (L82.1) Specimen B. SKIN, left posterior ear medial: SEBORRHEIC KERATOSIS, IRRITATED AND INFLAMED (L82.0) (see microscopic description) Specimen C. SKIN, right forehead: SQUAMOUS CELL CARCINOMA, ACANTHOLYTIC TYPE (C44.329) (see microscopic description) Specimen D. 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 DERMATOPATHOLOGY LABORATORY at [address] [facility] Clinical History A: R/O SCC. B-C: R/O BCC. D: R/O SCC. 9:[address] [facility] DERMATOPATHOLOGY LABORATORY Gross Description Specimen A: Received is one formalin filled container labeled with the patient's name and designated left posterior ear superior. The specimen consists of a shave biopsy measuring [id number] and [id number]. The margin is inked green. Jar 0. Specimen B: Received is one formalin filled container labeled with the patient's name and designated left posterior ear medial. The specimen consists of a shave biopsy measuring [id number]. Jar 0. Specimen C: Received is one formalin filled container labeled with the patient's name and designated right forehead. The specimen consists of a shave biopsy measuring [id number]. Jar 0. Specimen D: Received is one formalin filled container labeled with the patient's name and designated left mid ext FA. The specimen consists of a shave biopsy measuring [id number] bisected. Jar 0. 9:[address] [facility] DERMATOPATHOLOGY LABORATORY Microscopic Description Specimen A. SKIN, left posterior ear superior: Sections show an acanthotic lesion composed of relatively uniform keratinocytes. There is hyperkeratosis and pseudo horn cysts formation. Specimen B. SKIN, left posterior ear medial: Sections show acanthosis, papillomatosis, hyperkeratosis, and squamous eddies. There is a lymphohistiocytic infiltrate within the papillary dermis. Additional deeper sections were obtained and reviewed. Specimen C. SKIN, right forehead: Sections show skin with irregularly shaped nests of keratinocytes with evidence of cornification. In some nests, there is loss of cohesion between the neoplastic cells, as well as individual dyskeratotic cells that lack intercellular bridges. Additional deeper sections were obtained and reviewed. Specimen D. SKIN, left mid ext FA: The epidermis shows parakeratosis, full thickness disorderly maturation of keratinocytes, mitoses at different levels, and dyskeratotic cells. Adnexal extension of the lesion is seen. 9:49 AM LIVESTOCK AGENT DERMATOPATHOLOGY LABORATORY Disclaimer An external and internal positive and negative controls are appropriate for the histochemical, immunohistochemical and immunofluorescence stain(s) in this case (if any), except where stated explicitly. The performance characteristics of the stain(s) cited in this report were developed and its performance characteristic determined by the Dermatopathology Laboratory at [facility], directed by Dr. Concepción Stern. These tests need not be, and therefore are not, approved by the [place] Food and Drug Administration. The tests are used for clinical purposes. Billing Codes Specimen Charges Stain Charges 95097 [id number] 1 1 1 1 9:49 AM LIVESTOCK AGENT DERMATOPATHOLOGY LABORATORY Embedded Images 9:49 AM LIVESTOCK AGENT DERMATOPATHOLOGY LABORATORY Pathology/Cytology TISSUE SPECIMEN FROM SKIN / Unknown 01/04/2021 01/05/2021 11:52 AM LIVESTOCK AGENT Miscellaneous samples (specimen) TISSUE SPECIMEN FROM SKIN / Unknown 01/04/2021 01/05/2021 11:52 AM LIVESTOCK AGENT Miscellaneous samples (specimen) TISSUE SPECIMEN FROM SKIN / Unknown 01/04/2021 01/05/2021 11:52 AM LIVESTOCK AGENT Miscellaneous samples (specimen) TISSUE SPECIMEN FROM SKIN / Unknown 01/04/2021 01/05/2021 11:52 AM LIVESTOCK AGENT us Geoffrey Antunez MD LAB - PATHOLOGY/CYTOLOGY ORD ERABLES Final Result DERMATOPATHOLOGY LABORATORY [facility] - Department of Dermatology [address] [place] [address], [facility] [phone] documented in this encounter Visit Diagnoses Not on filedocumented in this encounter Care Teams Telesales Team Leader Relationship Specialty Start Date End Date Fidel De La Fuente MD [address] [place] [id number] PCP - General 09/09/18 documented as of this encounter
--- OUTSIDE RECORDS SUMMARY | 2024-08-06 15:41 | XMS_ITS ---
Author Organization [facility] Address [address] [place] [address] Care Team Providers Care Email Marketer Name Role Phone Fidel De La Fuente MD Primary Care Provider Emery Redding DO Unavailable [phone] Fidel Lassiter MD Unavailable [phone] Yfn Ventura MD Unavailable [phone] Arianne Berry MD Unavailable [phone] Active Problems Patient Care Coordination No te Formatting of this note migh t be different from the original. Mr. Riley Marrero is a 72-year-old with esophageal cancer. Patient has a history of Morrison's esophagus and GERD. He initially was admitted to the hospital with bronchitis, hypoxia an UTI. GI was consulted during his stay due to patient complaints of dysphagia, odynophagia and history of reflux and Morrison's esophagus. He also reports a 10 lb weight loss in the last week. On 09/05/2018 the patient underwent a EGD which demonstrated a partially obstructing, medium-size fungating mass seen in the lower third of the esophagus. The mass was malignant appearing. 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 At the esophageal cardia a small hiatal hernia was present. The hiatal narrowing was 43 cm from the incisors. The gastroesophageal junction was 40 cm from the incisors. A 4 cm segment of circumferential Morrison's mucosa was present. The upper borders of the Morrison's mucosa was at 36 cm from the incisors. The gastroesophageal junction was at 40 cm from the incisors. On 09/06/2018 the patient underwent a CT of the abdomen/pelvis which demonstrated nonspecific mild dilation of the left ureter without evidence of left ureteral calculus. There was mild asymmetric prominence of the left anterior and posterior. Renal fascia and left perinephric stranding. There was a small sliding hiatal hernia. A left hepatic cyst and a very small cortical cysts of the kidneys. There was nonspecific mild free fluid in the dependent pelvis. On 09/10/2018 the patient underwent an upper EUS which demonstrated a large fungating mass found in the lower third of the esophagus, extending from 37-39 cm from the incisors and not involving the GE junction at 40 cm. There was changes of Morrison's esophagus extending up to 35 cm. The mass in the distal esophagus was noted to involve the muscularis propria and consistent with a T3 lesion. There are a few non malignant appearing subcentimeter lymph nodes. His overall Endo sonographic staging was consistent with a T3 N0 MX. Patient is scheduled for a PET scan prior to his appointment today. Patient is a former smoker who quit over 50 years ago and has a 6 pack year smoking history. He has met with Dr. Redding in Medical Oncology. Patient has a history of 2 TIAs in the past. Patient has a BMI of 29.52. Patient presents today for further surgical evaluation. Review of systems: General: Positive for chills, weight loss night sweats and tiredness. Genitourinary: Positive for erection difficulties and impotence. EENT: Positive for difficulty swallowing endocrine: Positive for heat intolerance. Cardiovascular: Positive for high blood pressure. Psychiatric: Positive for anxiety. Respiratory: Positive for shortness of breath with exertion. All other systems reviewed and are negative. Problem Noted Date Diagnosed Date Morrison's esophagus with high grade dysplasia SOB (shortness of breath) 01/30/2023 Dizziness 06/16/2022 Assessment & Plan (06/16/2022 1:18 AM CDT): Unclear etiology Telemetry monitoring Urinalysis testing Orthostatic vital signs Fall precaution Neurological checks Echocardiogram Carotid ultrasound Meclizine p.r.n. EKG pending Neurology consultation Leukopenia 06/16/2022 Assessment & Plan (06/16/2022 1:17 AM CDT): Noted with labs in ER Status post chemotherapy Patient denies history of infection Urinalysis testing pending Will monitor vital signs Repeat WBC testing pending for a.m. Thrombocytopenia 06/15/2022 Assessment & Plan (06/16/2022 1:17 AM CDT): Likely associated with recent chemotherapy No active bleeding referred Transfusion platelets Repeat lab testing in a.m. 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 Recommend follow up renal sonogram in 2 months. Dehydration 11/11/2018 Acute blood loss anemia 10/02/2018 Overview (10/03/2018): Intra-op yesterday, during VATs with biopsy, EBL 1500ml interop likely 2/2 disruption of blood supply to tumor during biopsy. Per report, hemostasis achieved with sutures and cautery. Received 750 albumin, 2 units of uncross matched PRBC, and pressors during the case. Arrived with BP unsupported. Assessment & Plan (10/03/2018 10:36 AM CDT): Resolved. Expected following cardiac surgery. H&H stable. Remains off pressors. - No indication for transfusion, consider if patient becomes hemodynamically unstable with increased pressor requirements or hgb < 7 and symptomatic - CBC daily Assessment & Plan (10/02/2018 4:23 PM CDT): EBL 1500ml interop likely 2/2 disruption of blood supply to tumor during biopsy. Per report, hemostasis achieved with sutures and cautery. Received 750 albumin, 2 units of uncross matched PRBC, and pressors during the case. Arrived with BP unsupported. -T&S now -CBC, PT/PTT, fibrinogen now -consider NOA -Hgb goal > 7 -plt goal > 100 if continued bleeding noted -iCal goal > 5 -temp goal: normothermia -if CT output > 200ml/hr after coagulopathies corrected, notify thoracic surgery -levo for MAP goal > 65 Mediastinal mass 09/30/2018 Overview (09/30/2018): Added automatically from request for surgery [id number] Malignant neoplasm of lower third of esophagus 0 09/09/2018 Overview (09/09/2018): Added automatically from request for surgery [id number] Current Treatment and Therapy Plans No current plan information found. Past Treatment and Therapy Plans Line Care Plan Name Start Date Discontinue Date Treatment Medications Discontinue Reason Plan Provider IV MAINTENANCE THERAPY PLAN 11/05/2018 03/18/2024 No medications scheduled. Orders Emery Redding, Oncology Chemotherapy Treatment Plan Name Start Date Discontinue Date Treatment Medications Discontinue Reason Plan Provider Cycles R-CHOP: RiTUXimab / Cyclophosphamide / DOXOrubicin (ADRIAMYCIN) / VinCRIStine / PredniSONE 21 Day Cycles - DLBCL 3 09/08/2022 cycloPHOSphamide IVPB in 250 mL (vial 200 mg/mL)([id number])DOXO rubicin (ADRIAMYCIN) 2 mg/mLriTUXimab-pv vr (RUXIENCE) IVPB in 500 mLvinCRIStine (ONCOVIN) IVPB in 50 mL Therapy Complete Emery Redding DO 6 of 6 cycles completed [id number]: (Fluorouracil / Leucovorin / Oxaliplatin) 14 Day Cycles - GI 10/23/19 19 12/23/2018 fluorouracil (ADRUCIL)fluorour acil (ADRUCIL) infusion - for home infusion (ADRUCIL)leucovor inleucovorin IVPB in 250 mLoxaliplatin (ELOXATIN)oxalipl atin (ELOXATIN) IVPB Therapy Complete Emery Redding DO 4 of 12 cycles completed Lifetime Dose Tracking * Chemical Lifetime Dose Automatic Entry Manual Entr y doxorubicin 231.447 mg/m2 (478.4 mg) 231.447 mg/m2 (478.4 mg) 0 mg/m2 (0 mg) cyclophosphamide 3,989.556 mg/m2 (8,240 mg) 3,989.556 mg/m2 (8,240 mg) 0 mg/m2 (0 mg) doxorubicin isotoxic equivalent (Please manually verify calculation) 231.447 mg/m2 (478.4 mg) 231.447 mg/m2 (478.4 mg) 0 mg/m2 (0 mg)
--- OUTSIDE RECORDS SUMMARY | 2024-08-06 15:41 | XMS_ITS | Referral Summary ---
Author Organization [facility] Address [address] [place] [address] Care Team Providers Care Document Management Technician Name Role Phone Fidel De La Fuente MD Primary Care Provider Emery Redding DO Unavailable [phone] Fidel Lassiter MD Unavailable [phone] Yfn Ventura MD Unavailable [phone] Arianne Berry MD Unavailable [phone] Encounters Date Type Department Care Team Description 07/17/2024 Telephone [facility] Gastroenterology [address] [place] [address] Medical Office Building 4, [address] [place] [address] Rabia Echevarria RN 06/19/2024 1:45 PM CDT Clinical Support [facility] [address] [place] [id number] Malignant neoplasm of lower third of esophagus (HCC); Diffuse large B-cell lymphoma, unspecified body region (HCC) 06/19/2024 2:00 PM CDT Office Visit [facility] Physicians [facility] Oncology [address] [place] [address] [address] [place] [address] Emery Redding DO Malignant neoplasm of lower third of esophagus (HCC) (Primary Dx); Rk marginal zone B-cell lymphoma (HCC); Diffuse large B-cell lymphoma, unspecified body region (HCC) 06/16/2024 Telephone [facility] Gastroenterology [address] [place] [address] Medical Office Building [address], [address] [place] [address] Rabia Echevarria RN GI preprocedure 08.11.2024 06/12/2024 1:35 PM CDT - 06/12/2024 11:59 PM CDT Hospital Encounter [facility] Medical Office Building [address] [place] [id number] Malignant neoplasm of lower third of esophagus (HCC); Diffuse large B-cell lymphoma, unspecified body region (HCC) Discharge Disposition: Discharge to home or self care 05/08/2024 Results Follow-Up [facility] Gastroenterology [facility] Office Building [address], [address] [place] [address] Rabia Echevarria RN Surgical pathology from Last 3 Months Allergies Active Allergy Reactions Criticality Noted Date Comments Chocolate Headache Low 03/11/[address] (PROTONIX) 40 mg EC tablet Take 1 tablet (40 mg total) by mouth daily 07/19/2019 Active PARoxetine (PAXIL) 10 mg tablet Take 1 tablet (10 mg total) by mouth daily 05/25/2022 Active metoprolol tartrate (LOPRESSOR) 25 mg immediate release tablet Take 1 tablet (25 mg total) by mouth 2 (two) times a day Active sucralfate (CARAFATE) 1 gram tablet Take 1 tablet (1 g total) by mouth 4 (four) times a day for 10 days 40 tablet 3 11/16/2023 Active Active Problems Patient Care Coordination No te [...] (09/30/2018): Added automatically from request for surgery [id number] Malignant neoplasm of lower third of esophagus 0 09/09/2018 Overview (09/09/2018): Added automatically from request for surgery [id number] Immunizations Immunization Administration Dates Next Due Influenza, Trivalent, Adjuvanted, Intramuscular 01/04/2018 Pfizer SARS-CoV-2 Monovalent Vaccination (12+ Yrs) PURPLE 05/21/2020,04/30/2020 Tdap 09/12/2019 Social History Tobacco Use Types Packs/Day Years Used Date Smoking Tobacco: Former Cigarettes 1 1 0 05/1966 - 05/1967 Smokeless Tobacco: Never Tobacco Cessation:Counseling Given: Not Answered Alcohol Use Standard Drinks/Week Comments Not Currently 0 (1 standard drink = 0.6 oz pur e alcohol) AUDIT-C Answer Date Recorded Q1: How often do you have a drink containing alc ohol? Never 02/08/2024 Q2: How many drinks containi ng alcohol do you have on a typical day when you are drinking? 1 or 2 02/08/2024 Q3: How often do you have si x or more drinks on one occasion? Less than monthly 02/08/2024 Personal Safety Answer Date Recorded Have you ever been in or are you currently in a harmful physical or emotional relationship or is someone making you feel afraid or unsafe? 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 [employer] Not on file Not on file Not on file Last Filed Vital Signs Vital Sign Reading Time Taken Comments Blood Pressure 110/68 06/19/2024 1:56 PM CDT Pulse 75 06/19/2024 1:56 PM CDT Temperature 36.7 C (98.1 F) 06/19/2024 1:56 PM CDT Respiratory Rate 16 06/19/2024 1:56 PM CDT Oxygen Saturation 93% 06/19/2024 1:56 PM CDT Inhaled Oxygen Concentration - - Weight 85.4 kg (188 lb 3.2 oz) 06/19/2024 1:56 P M CDT Height 172.7 cm (5' 8) 05/05/2024 9:13 AM CDT Body Mass Index 28.62 05/05/2024 9:13 AM CDT Plan of Treatment Upcoming Encounters Date Type Department Care Team (Late st Contact Info) Description 08/11/2024 7:30 AM CDT Hospital Encounter [facility] [address] [place] [phone] Uriel Meredith MD [address] [address] 08/11/2024 7:30 AM CDT - 08/11/2024 8:00 AM CDT Surgery [facility] [address] [place] [phone] Uriel Meredith MD [address] [address] EGD w/Hybrid APC Scheduled Procedures Name Priority Associated Diagnoses Date/Ti me ESOPHAGOGASTRODUODENOSCOPY Morrison's esophagus with high grade dysplasia 08/11/2024 7:30 AM CDT Medical Devices Implanted Type Area Dedicated [employer]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 Device Identifier Shelf Expiration Date Model / Serial / Lot Port-09/23/2018 Implanted:09/23 (Quantity not on file) Right: Chest Procedures Procedure Name Priority Date/Time Associated Diagnosis Comments EGFR Routine 06/19/2024 1:34 PM CDT Malignant neoplasm of lower third of esophagus (HCC) Diffuse large B-cell lymphoma, unspecified body region (HCC) DIFFERENTIAL AUTO Routine 06/19/2024 1:3 4 PM CDT Malignant neoplasm of lower third of esophagus (HCC) Diffuse large B-cell lymphoma, unspecified body region (HCC) CBC WITH AUTO DIFFERENTIAL Routine 06/19/2024 1:34 PM CDT Malignant neoplasm of lower third of esophagus (HCC) Diffuse large B-cell lymphoma, unspecified body region (HCC) COMPREHENSIVE METABOLIC PANEL Routine 06/19/2024 1:34 PM CDT Malignant neoplasm of lower third of esophagus (HCC) Diffuse large B-cell lymphoma, unspecified body region (HCC) LACTATE DEHYDROGENASE Routine 06/19/2024 1:34 PM CDT Malignant neoplasm of lower third of esophagus (HCC) Diffuse large B-cell lymphoma, unspecified body region (HCC) CT CHEST ABDOMEN PELVIS W CONTRAST Schedule Routine, Read Routine (OP Routine) 06/12/2024 1:59 PM CDT Malignant neoplasm of lower third of esophagus (HCC) Diffuse large B-cell lymphoma, unspecified body region (HCC) POCT CREATININE FOR CONTRAST EVALUATION Routine 06/12/2024 1:54 PM CDT from Last 3 Months Results * eGFR (06/19/2024 1:34 PM CDT) eGFR 76 >=60 mL/min/1. 73 m2 Comment: Interpretive Data Reference Interval Normal >/= 90 mL/min/1.73m2 Mildly decreased* 60 - 89 mL/min/1.73m2 Mildly to moderately decreased 45 - 59 mL/min/1.73m2 Moderately to severely decreased 30 - 44 mL/min/1.73m2 Severely decreased 15 - 29 mL/min/1.73m2 Kidney Failure < 15 mL/min/1.73m2 *Relative to young adult level Estimated glomerular filtration rate is determined by the 2021 CKD-EPI equation recommended by the National Kidney Foundation (A Unifying Approach to GFR Estimation: Recommendations of the NKF-ASK Task Force on Reassessing the Inclusion of Race in Diagnosing Kidney Disease, JASN 202). The CKD-EPI equation should not be used for patients with unstable renal function and has not been validated in children and those over 70. Current interpretive data was last reviewed 2020. Testing performed by: [address] [address] Blood 06/19/2024 1:34 PM CDT 06/19/2024 1:35 PM CDT us Hilary Mistry NP LAB BLOOD ORDERABLES Final Result [facility] [address] [facility] Department [place] [address] * (ABNORMAL) Differential, auto (06/19/2024 1:34 PM CDT) Neutrophil abs 3.63 1.50 - 6.50 K/cumm Comment:Testing performed by : [address] [address] Imm gran abs 0.03 0.00 - 0.10 K/cumm GH[facility]AM Comment:Testing performed by : [address] [address] Lymphocyte abs 0.73(L) 0.80 - 3.30 K/cumm [facility]AM Comment:Testing performed by : [address] [address] Monocyte abs 0.64 0.20 - 0.80 K/cumm [facility]AM Comment:Testing performed by : [address] [address] Eosinophil abs 0.12 0.00 - 0.50 K/cumm [facility] Comment:Testing performed by : [address] [address] Basophil abs 0.03 0.00 - 0.10 K/cumm [facility] Comment:Testing performed by : [address] [address] Neutrophil pct 70.0 % CERNER Comment: Interpretive Data Percent cell count reference ranges are not reported, since discordance with absolute values may lead to misinterpretation of CBC data. Current Interpretive Data was last revised on 2017. Testing performed by: [address] [address] Imm gran pct 0.6 % [facility] Comment: Interpretive Data Percent cell count reference ranges are not reported, since discordance with absolute values may lead to misinterpretation of CBC data. Current Interpretive Data was last revised on 2017. Testing performed by: [address] [address] Lymphocyte pct 14.1 % [facility] Comment: Interpretive Data Percent cell count reference ranges are not reported, since discordance with absolute values may lead to misinterpretation of CBC data. Current Interpretive Data was last revised on 2017. Testing performed by: [address] [address] Monocyte pct 12.4 % [facility] Comment: Interpretive Data Percent cell count reference ranges are not reported, since discordance with absolute values may lead to misinterpretation of CBC data. Current Interpretive Data was last revised on 2017. Testing performed by: [address] [address] Eosinophil pct 2.3 % C[facility]ER Comment: Interpretive Data Percent cell count reference ranges are not reported, since discordance with absolute values may lead to misinterpretation of CBC data. Current Interpretive Data was last revised on 2017. Testing performed by: [address] [address] Basophil pct 0.6 % [facility] Comment: Interpretive Data Percent cell count reference ranges are not reported, since discordance with absolute values may lead to misinterpretation of CBC data. Current Interpretive Data was last revised on 2017. Testing performed by: [address] [address] Blood 06/19/2024 1:34 PM CDT 06/19/2024 1:35 PM CDT us Hilary Mistry [facility] LAB BLOOD ORDERABLES Final Result [facility] [address] [facility] Department [place] [address] * (ABNORMAL) CBC with auto differential (06/19/2024 1:34 PM CDT) WBC 5.18 3.80 - 9.90 K/cumm Comment:Testing performed by : [address] [address] Hgb 12.4(L) 13.0 - 17.5 g/dL [facility] Comment:Testing performed by : [address], [address] Hct 36.8(L) 38.9 - 50.3 % [facility] Comment:Testing performed by : [address] [address] Plt 124(L) 150 - 400 K/cumm [facility]AM Comment:Testing performed by : [address] [address] MPV 9.1 9.1 - 12.3 fL [facility] Comment:Testing performed by : [address] [address] RBC 3.98(L) 4.30 - 5.80 M/cumm [facility] Comment:Testing performed by : [address] [address] MCV 92.5 81.3 - 96.4 fL [facility] Comment:Testing performed by : [address] [address] MCH 31.2 27.1 - 33.3 pg [facility] Comment:Testing performed by : [address] [address] MCHC 33.7 32.3 - 35.7 g/dL [facility] Comment:Testing performed by : [address] [address] RDW CV 13.5 11.1 - 14.9 % [facility] Comment:Testing performed by : [address] [address] RDW SD 44.8 35.7 - 48.1 fL [facility] Comment:Testing performed by : [address] [address] NRBC abs 0.00 0.00 - 0.01 K/cumm [facility] Comment:Testing performed by : [address] [address] ANC Prelim 3.63 1.50 - 6.50 K/cumm [facility] Comment: Interpretive Data The rapid ANC is a preliminary automated count and may vary from the final ANC (Neut Abs) reported in the WBC differential that follows. Current interpretive data was last revised 2024. Testing performed by: [address] [address] Blood 06/19/2024 1:34 PM CDT 06/19/2024 1:35 PM CDT Hilary Mistry [facility] LAB BLOOD ORDERABLES Final Result Performing Organization Address City/[facility]/ZIP Co de Phone Number [address] [place] [place] [address] * Lactate dehydrogenase (LD) (06/19/2024 1:34 PM CDT) Lactate dehydrogenase (LDH) 208 100 - 250 Units/L Comment:Testing performed by : [address] [address] Blood 06/19/2024 1:34 PM CDT 06/19/2024 1:35 PM CDT Hilary Mistry NP LAB BLOOD ORDERABLES Final Result [address] [place] [address] * Comprehensive metabolic panel (06/19/2024 1:34 PM CDT) Sodium 138 135 - 145 mmol/L Comment:Testing performed by : [address], [place]., [address] Potassium, pl 4.1 3.3 - 4.9 mmol/L [facility] Comment:Testing performed by : [address], [place]., [address] Chloride 103 97 - 110 mmol/L [facility] Comment:Testing performed by : [address], [place]., [address] CO2 24 22 - 32 mmol/L [facility] Comment:Testing performed by : [address], [place]., [address] Anion gap 11 2 - 15 mmol/L [facility] Comment:Testing performed by : [address], [place]., [address] BUN 13 6 - 25 mg/dL [facility] Comment:Testing performed by : [address], [place]., [address] Creatinine 1.00 0.80 - 1.30 mg/dL [facility] Comment:Testing performed by : [address], [place]., [address] Glucose 119 70 - 199 mg/dL [facility] Comment: Interpretive Data Fasting glucose >/= 126 mg/dl is diagnostic for diabetes. Fasting is defined as no caloric intake for at least 8 hours. Fasting glucose between 100 mg/dl to 125 mg/dl is diagnostic of prediabetes. In a patient with classic symptoms of hyperglycemia or hyperglycemic crisis, a random glucose >/= 200 mg/dl is diagnostic for diabetes. In the absence of unequivocal hyperglycemia, results should be confirmed by repeat testing. The classification and Diagnosis of Diabetes Diabetes Care 202; 46: S19-S40. Current interpretive data was last revised 2022. Testing performed by: [address] [address] Calcium 8.9 8.5 - 10.3 mg/dL [facility] Comment:Testing performed by : [address] [address] Bilirubin, total 0.3 0.1 - 1.2 mg/dL [facility] Comment:Testing performed by : [address] [address] Protein, pl 7.0 6.5 - 8.5 g/dL [facility] Comment:Testing performed by : [address] [address] Albumin 3.8 3.5 - 5.0 g/dL [facility] Comment:Testing performed by : [address] [address] Alk phos 112 40 - 130 Units/L [facility] Comment:Testing performed by : [address] [address] ALT 9 7 - 55 Units/L [facility] Comment:Testing performed by : [address] [address] AST 16 10 - 50 Units/L [facility] Comment:Testing performed by : [address] [address] Blood 06/19/2024 1:34 PM CDT 06/19/2024 1:35 PM CDT Hilary Mistry [employer] LAB BLOOD ORDERABLES Final Result [facility] Department of Laboratories [place], [place] [id number] * CT Chest Abdomen Pelvis W Contrast (06/12/2024 1:59 PM CDT) Anatomical Region Laterality Modality Body N/A Computed Tomogra phy 06/17/2024 3:22 PM CDT Narrative 06/17/2024 3:33 PM CDT EXAM DESCRIPTION: CT CHEST ABDOMEN PELVIS W CONTRAST REASON FOR STUDY: h/o esophogeal CA and DLBCL 3 month esophageal cancer and DLBCL f/u. No complaints. No surgeries. TECHNIQUE: CT scan of the chest, abdomen, and pelvis performed with intravenous and without oral contrast using helical scanning technique with dynamic intravenous contrast injection. Reconstructed coronal and sagittal MPR images reviewed. All images stored on PACS. Automated exposure control was used as a dose optimization technique for this examination. CONTRAST TYPE/DOSE: 100mL of IOVERSOL 350 MG IODINE/ML INTRAVENOUS SYRINGE injected via intravenous COMPARISON: 03/12/2024 FINDINGS: CHEST LUNGS: There is increased moderate patchy bilateral ground-glass compared to the prior. Chronic right basilar scarring is noted, unchanged. There is otherwise no consolidation seen. PLEURA: Chronic partially calcified right basilar pleural thickening is grossly unchanged. No significant effusion. MEDIASTINUM/DREW: Subcentimeter mediastinal lymph nodes are noted. No hilar lymphadenopathy. HEART: The heart is normal in size. Small pericardial effusion. Coronary calcification is present. VASCULATURE CHEST: Motion within the aortic root. The aorta is nonaneurysmal. AXILLA: No adenopathy. CHEST WALL: Gynecomastia is present HARDWARE/LINES/TUBES: Right port catheter terminates within the proximal right atrium. MUSCULOSKELETAL CHEST: No significant abnormality. ABDOMEN/PELVIS LIVER: The liver is normal in size. A possible 5 mm hyperenhancing mass within the right hemiliver is grossly stable (77). GALLBLADDER: The gallbladder is distended. No CT evidence of acute cholecystitis BILE DUCTS: No gross biliary ductal dilatation. SPLEEN: Spleen is normal in size. PANCREAS: Pancreas is normal in size. No significant peripancreatic stranding or main ductal dilatation. ADRENALS: Normal. KIDNEYS/URINARY TRACT: The kidneys are normal in size. Symmetric in enhancement. Prominent renal pelvis are seen without overt hydronephrosis. Urinary bladder is partially distended. Mild bladder wall thickening. GI: There is stool throughout the colon which appears nondilated. The appendix is nondilated. The small bowel is nondilated without evidence of a small bowel obstruction. Indeterminate thickening of a decompressed distal esophagus is similar in appearance compared to the prior examination in this patient with reported history of esophageal cancer. A small hiatal hernia is present. The stomach is minimally distended. PERITONEUM: No free air. No ascites. No mesenteric or periportal lymphadenopathy is seen RETROPERITONEUM: No retroperitoneal lymphadenopathy REPRODUCTIVE: Prominent prostate VASCULATURE ABDOMEN: Extensive atherosclerosis within a nondilated infrarenal aorta MUSCULOSKELETAL ABDOMEN PELVIS: Mild wedging of the superior endplate of L4 is unchanged. Indeterminate lucent lesion within L4 is grossly unchanged as well. OTHER: No significant abnormality. IMPRESSION: 1. Increased indeterminate patchy pulmonary ground-glass compared to 03/12/2024. This is favored to be infectious/inflammatory rather than malignant. Short-term interval follow-up chest CT is recommend for further evaluation. 2. No lymphadenopathy within the chest, abdomen or pelvis. 3. Grossly stable possible subcentimeter hyperenhancing right liver mass. Recommend close attention on follow-up. 4. Indeterminate urinary bladder wall thickening. Recommend correlation with urinalysis, urine cytology and PSA. 5. Additional findings as above. THIS IS AN ELECTRONICALLY VERIFIED FINAL REPORT 06/17/2024 3:33 PM - Electronically signed by Elias Kelly M.D. AG: AG Report ID: [id number] Reading Location: [id number] Procedure Note Elias Kelly MD - 06/17/2024 EXAM DESCRIPTION: CT CHEST ABDOMEN PELVIS W CONTRAST REASON FOR STUDY: h/o esophogeal CA and DLBCL 3 month esophageal cancer and DLBCL f/u. No complaints. No surgeries. TECHNIQUE: CT scan of the chest, abdomen, and pelvis performed with intravenous and without oral contrast using helical scanning techniquewith dynamic intravenous contrast injection. Reconstructed coronal and sagittalMPR images reviewed. All images stored on PACS. Automated exposure control was used as a dose optimization technique for this examination. CONTRAST TYPE/DOSE: 100mL of IOVERSOL 350 MG IODINE/ML INTRAVENOUS SYRINGE injected via intravenous COMPARISON: 03/12/2024 FINDINGS: CHEST LUNGS: There is increased moderate patchy bilateral ground-glasscompared to the prior. Chronic right basilar scarring is noted, unchanged. There is otherwise no consolidation seen. PLEURA: Chronic partially calcified right basilar pleural thickening is grossly unchanged. No significant effusion. MEDIASTINUM/DREW: Subcentimeter mediastinal lymph nodes are noted. Nohilar lymphadenopathy. HEART: The heart is normal in size. Small pericardial effusion.Coronary calcification is present. VASCULATURE CHEST: Motion within the aortic root. The aorta is nonaneurysmal. AXILLA: No adenopathy. CHEST WALL: Gynecomastia is present HARDWARE/LINES/TUBES: Right port catheter terminates within the proximal right atrium. MUSCULOSKELETAL CHEST: No significant abnormality. ABDOMEN/PELVIS LIVER: The liver is normal in size. A possible 5 mm hyperenhancing mass within the right hemiliver is grossly stable (77). GALLBLADDER: The gallbladder is distended. No CT evidence of acute cholecystitis BILE DUCTS: No gross biliary ductal dilatation. SPLEEN: Spleen is normal in size. PANCREAS: Pancreas is normal in size. No significant peripancreatic stranding or main ductal dilatation. ADRENALS: Normal. KIDNEYS/URINARY TRACT: The kidneys are normal in size. Symmetric in enhancement. Prominent renal pelvis are seen without overthydronephrosis. Urinary bladder is partially distended. Mild bladder wall thickening. GI: There is stool throughout the colon which appears nondilated. The appendix is nondilated. The small bowel is nondilated without evidence ofa small bowel obstruction. Indeterminate thickening of a decompresseddistal esophagus is similar in appearance compared to the prior examination inthis patient with reported history of esophageal cancer. A small hiatal herniais present. The stomach is minimally distended. PERITONEUM: No free air. No ascites. No mesenteric or periportal lymphadenopathy is seen RETROPERITONEUM: No retroperitoneal lymphadenopathy REPRODUCTIVE: Prominent prostate VASCULATURE ABDOMEN: Extensive atherosclerosis within a nondilated infrarenal aorta MUSCULOSKELETAL ABDOMEN PELVIS: Mild wedging of the superior endplate ofL4 is unchanged. Indeterminate lucent lesion within L4 is grossly unchangedas well. OTHER: No significant abnormality. IMPRESSION: 1. Increased indeterminate patchy pulmonary ground-glass compared to 03/12/2024. This is favored to be infectious/inflammatory rather than malignant. Short-term interval follow-up chest CT is recommend forfurther evaluation. 2. No lymphadenopathy within the chest, abdomen or pelvis. 3. Grossly stable possible subcentimeter hyperenhancing right livermass. Recommend close attention on follow-up. 4. Indeterminate urinary bladder wall thickening. Recommend correlation with urinalysis, urine cytology and PSA. 5. Additional findings as above. THIS IS AN ELECTRONICALLY VERIFIED FINAL REPORT 06/17/2024 3:33 PM - Electronically signed by Elias Kelly M.D. AG: MICAH Report ID: [id number] Reading Location: [place] [address] Hilary Mistry [facility] IMG CT PROCEDURES Fi nal Result * POCT creatinine for contrast evaluation (06/12/2024 1:54 PM CDT) Creatinine POC 1.30 0.80 - 1.30 mg/dL Comment:Testing performed by : [facility] [address] [place] [address], [place]., [address] Blood 06/12/2024 1:54 PM CDT 06/12/2024 1:54 PM CDT Hilary Mistry NP POINT OF CARE TEST O RDERABLES Final Result Performing Organization Address City/State/ZIP Co hi Phone Number [facility] [address] [facility] Department [place] [address] from Last 3 Months Insurance [facility] MEDICARE ADVANTAGE [facility] MEDICARE [facility] MEDICARE ADVANTAGE [facility] MEDICARE ADVANTAGE Advance Directives For more information, please contact: [phone] * Full Code (Latest Code Status on File) Date Activated Date Inactivated Comments 05/05/2024 9:02 AM 05/05/2024 3:19 PM * Full Code Date Activated Date Inactivated Comments 02/08/2024 7:57 AM 02/08/2024 1:11 PM * Full Code Date Activated Date Inactivated Comments 11/16/2023 6:48 AM 11/16/2023 12:16 PM * LIMITED - No CPR Date Activated Date Inactivated Comments 06/16/2022 12:54 AM 06/17/2022 6:52 PM Question Answer Comments Provide aggressive medical m anagement before a full cardiopulmonary arrest occurs. Use antibiotics, IV Fluids, and medical treatment unless specifically selected below: No intubation * Full Code Date Activated Date Inactivated Comments 03/27/2022 11:58 AM 03/28/2022 5:06 AM Care Teams Document Management Technician Relationship Specialty Start Date End Date Fidel De La Fuente MD [address] [facility] 162 [facility] 120 [place], [place] [phone] PCP - General Family Medicine 09/12/18 Emery Redding DO [facility] [id number] Medical Oncologist/Community Development Officer Hematology and Oncology 09/19/18 Fidel Lassiter MD [facility] [phone] Radiation Oncologist Radiation Oncology 09/19/18 Yfn Ventura MD [address] [place] [address] [phone] Dermatology 03/21/21 Arianne Berry MD [address] [facility] 162 [facility] 202 [place], [place] [phone] Consulting Physician Critical Care Med 03/15/22
--- OUTSIDE RECORDS SUMMARY | 2024-08-06 15:41 | XMS_ITS | Clinical Summary ---
Author Organization [facility] Address [address], [facility] [address] [place] [address] Phone Care Team Providers Care Motor Express Clerk Name Role Phone Fidel De La Fuente MD Primary Care Provider Allergies No known active allergies Medications PAROXETINE HCL PO Take 20 mg by mouth daily. Active LISINOPRIL PO Take 40 mg by mouth daily. Active ondansetron (ZOFRAN) 4 MG Tablet TAKE 1 TABLET BY MOUTH EVERY 6 HOURS NEEDED FOR NAUSEA OR VOMITING 2 2018 Active metoclopramide (REGLAN) 10 MG Tablet Take 10 mg by mouth 3 times daily. Active nystatin (MYCOSTATIN) 581857 UNIT/ML Suspension Take 5 mL by mouth 4 times daily. Apply to inside of each cheek. Active omeprazole (PRILOSEC) 40 MG CAPSULE DELAYED RELEASE Take 40 mg by mouth daily. Active sucralfate (CARAFATE) 1 GM/10ML Suspension Take 10 mL by mouth every 6 hours. 1200 mL 2 12/10/2018 Active Family History Medical History Relation Name Comments Cancer Brother bladder Cancer Father lung, throat Cancer Sister 1 leukemia, breas t lung liver Cancer Sister 2 Relation Name Status Comments Brother Father Mother Sister 1 Sister 2 Social History Tobacco Use Types Packs/Day Years Used Date Smoking Tobacco: Former Cigarettes 1 6 1 - 12/07/1967 Smokeless Tobacco: Never Alcohol Use Standard Drinks/Week Comments Never 0 (1 standard drink = 0.6 oz pur e alcohol) AUDIT-C Answer Date Recorded Frequency of Alcohol Consumption Never 12/06/2018 Average Number of Drinks Not on file 019 Frequency of Binge Drinking Not on file 11/26 PHQ-2 Answer Date Recorded PHQ-2 Score 0 12/10/2018 Sex and Gender Information Value Date Recorded Sex Assigned at Not on file Legal Sex Male 9:45 PM CDT Gender Identity Not on file Sexual Orientation Not on file Last Filed Vital Signs Vital Sign Reading Time Taken Comments Blood Pressure 135/76 12/10/2018 7:14 AM CDT Pulse 91 12/10/2018 7:14 AM CDT Temperature 37 C (98.6 F) 12/10/2018 7:14 AM CDT Respiratory Rate 19 12/10/2018 7:14 AM CDT Oxygen Saturation 98% 12/10/2018 7:14 AM CDT Inhaled Oxygen Concentration - - Weight 78.9 kg (174 lb) 12/06/2018 3:00 PM CDT Height 172.7 cm (5' 8) 12/06/2018 3:00 PM CDT Body Mass Index 26.46 12/06/2018 3:00 PM CDT Plan of Treatment Health Maintenance Due Date Last Done Comments Hepatitis C Virus (HCV) Screening 1945 TdaP Immunization 1945 Pneumococcal Immunization (5 0+ years) (1 of 1 - PCV) 10/24/1993 Zoster Immunization (1 of 2) 10/24/1993 Respiratory Syncytial Virus (RSV) Immunization (Adult) (1 - 1-dose 75+ series) 10/24/2018 SARS-COV-2 Immunization ( - season) 2023 01/31/2021, 05/21/2020, 04/30/2020 Influenza Immunization (Seas on Ended) 2024 01/04/2018 Hepatitis B Immunization Aged Out No longer eligible based on patient's age to complete this topic Human Papillomavirus (HPV) Immunization Aged Out No longer eligible b ased on patient's age to complete this topic Meningococcal Immunization (ACWY) Aged Out No longer eligible b ased on patient's age to complete this topic Rotavirus Immunization Aged Out No lo nger eligible based on patient's age to complete this topic Care Teams Motor Express Clerk Relationship Specialty Start Date End Date Fidel De La Fuente MD [address] [place] [address] PCP - General Family Medicine 09/12/18
--- OUTSIDE RECORDS SUMMARY | 2024-08-06 15:41 | XMS_ITS | Encounter Summary ---
Author Organization [facility] Address [address] [facility] [place] [address] Care Team Providers Care Survey Questionnaire Designer Name Role Phone Fidel De La Fuente MD Primary Care Provider [phone] Encounter Details Date Type Department Care Team (Late st Contact Info) Description 01/19/2021 Lab Requisition [facility] [address] [facility], [place] [address] Geoffrey Antunez MD [address] [place] [address] Social History Tobacco Use Types Packs/Day Years Used Date Smoking Tobacco: Never Assessed Sex and Gender Information Value Date Recorded Sex Assigned at Not on file Legal Sex Male 4:34 AM WEB SERVICES MANAGER Gender Identity Not on file Sexual Orientation Not on file documented as of this encounter Plan of Treatment Not on file documented as of this encounter Procedures Procedure Name Priority Date/Time Associated Diagnosis Comments DERMATOPATHOLOGY Routine 01/18/2021 12:0 0 AM WEB SERVICES MANAGER documented in this encounter Results * DERMATOPATHOLOGY (01/18/2021 12:00 AM WEB SERVICES MANAGER) Case Report Dermatopathology Report Case: [id number] Authorizing Provider: Geoffrey Antunez MD Collected: 01/18/2021 12:00 AM Ordering Location: [facility] Received: 01/19/2021 12:09 PM Pathologist: Magali Leonard MD Specimens: A) - Skin, left superior nasal sidewall B) - Skin, 1.5cm above right lateral brow C) - Skin, right lateral superior forehead (5cm above brow) 1:13 PM WEB SERVICES MANAGER DERMATOPATHOLOGY LABORATORY Final Diagnosis Specimen A. 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 B-C: R/O Estes's vs SCC. 1 1:13 PM [facility] DERMATOPATHOLOGY LABORATORY Gross Description Specimen A: Received is one formalin filled container labeled with the patient's name and designated left superior nasal sidewall. The specimen consists of a shave biopsy measuring [id number]. Jar 0. Specimen B: Received is one formalin filled container labeled with the patient's name and designated 1.5cm above right lateral brow. The specimen consists of a shave biopsy measuring [id number]. Jar 0. Specimen C: Received is one formalin filled container labeled with the patient's name and designated right lateral superior forehead (5cm above brow). The specimen consists of a shave biopsy measuring 27x4z3mn. Jar 0. 1 1:13 PM [facility] DERMATOPATHOLOGY LABORATORY Microscopic Description Specimen A. SKIN, left superior nasal sidewall: The epidermis shows parakeratosis, full thickness disorderly maturation of keratinocytes, mitoses at different levels, and dyskeratotic cells. Specimen B. SKIN, 1.5cm above right lateral brow: The epidermis shows parakeratosis, full thickness disorderly maturation of keratinocytes, mitoses at different levels, and dyskeratotic cells. The lesion extends to the base of the specimen as adnexal extension. Specimen C. SKIN, right lateral superior forehead (5cm above brow): The epidermis shows parakeratosis, full thickness disorderly maturation of keratinocytes, mitoses at different levels, and dyskeratotic cells. In some foci, there is loss of cohesion between the neoplastic cells, as well as individual dyskeratotic cells that lack intercellular bridges.There are fibroblasts and collagen bundles oriented parallel to the skin surface with elongated blood vessels, some of which are oriented perpendicular to the skin surface. The lesion extends to the base of the specimen as adnexal extension. 1 1:13 PM WEB SERVICES MANAGER DERMATOPATHOLOGY LABORATORY Disclaimer An external and internal positive and negative controls are appropriate for the histochemical, immunohistochemical and immunofluorescence stain(s) in this case (if any), except where stated explicitly. The performance characteristics of the stain(s) cited in this report were developed and its performance characteristic determined by the Dermatopathology Laboratory at [facility], directed by Dr. Concepción Stern. These tests need not be, and therefore are not, approved by the [place] Food and Drug Administration. The tests are used for clinical purposes. Billing Codes Specimen Charges Stain Charges 46316 [id number] 1 1 1 1 1:13 PM WEB SERVICES MANAGER DERMATOPATHOLOGY LABORATORY Embedded Images 1 1:13 PM WEB SERVICES MANAGER DERMATOPATHOLOGY LABORATORY Pathology/Cytology TISSUE SPECIMEN FROM SKIN / Unknown 01/18/2021 01/19/2021 12:09 PM WEB SERVICES MANAGER Miscellaneous samples (specimen) TISSUE SPECIMEN FROM SKIN / Unknown 01/18/2021 01/19/2021 12:09 PM WEB SERVICES MANAGER Miscellaneous samples (specimen) TISSUE SPECIMEN FROM SKIN / Unknown 01/18/2021 01/19/2021 12:09 PM WEB SERVICES MANAGER Geoffrey Antunez MD LAB - PATHOLOGY/CYTOLOGY ORD ERABLES Final Result DERMATOPATHOLOGY LABORATORY [facility] - Department of Dermatology [facility] Medicine [address] [place] [address], [address] [place] [address], [facility] [phone] documented in this encounter Visit Diagnoses Not on filedocumented in this encounter Care Teams Survey Questionnaire Designer Relationship Specialty Start Date End Date Fidel De La Fuente MD [address] [place] [address] PCP - General 09/09/18 documented as of this encounter
--- OUTSIDE RECORDS SUMMARY | 2024-08-06 15:41 | XMS_ITS | Encounter Summary ---
Author Organization [facility] Healthcare Address [address] [place] [address] Care Team Providers Care Metal Miner Name Role Phone Fidel De La Fuente MD Primary Care Provider Emery Redding DO Unavailable [phone] Fidel Lassiter MD Unavailable [phone] Yfn Ventura MD Unavailable [phone] Arianne Berry MD Unavailable [phone] Encounter Details Date Type Department Care Team (Late Contact Info) Description 03/29/2022 Telephone [place] [id number] [place] [address] Kati Ross, RN Social History Tobacco Use Types Packs/Day Years Used Date Smoking Tobacco: Former Cigarettes 1 1 0 05/1966 - 05/1967 Smokeless Tobacco: Never Alcohol Use Standard Drinks/Week Comments Not Currently 0 (1 standard drink = 0.6 oz pur e alcohol) AUDIT-C Answer Date Recorded Q1: How often do you have a drink containing alc ohol? 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[employer] Not on file Not on file Not on file documented as of this encounter Plan of Treatment Upcoming Encounters Date Type Department Care Team (Late st Contact Info) Description 08/11/2024 7:30 AM CDT Hospital Encounter [facility] [address] [place] [phone] Uriel Meredith MD [address] [address] 08/11/2024 7:30 AM CDT - 08/11/2024 8:00 AM CDT Surgery [facility] [address] [place] [phone] Uriel Meredith MD [address] [address] EGD w/Hybrid APC Scheduled Procedures Name Priority Associated Diagnoses Date/Ti me ESOPHAGOGASTRODUODENOSCOPY Morrison's esophagus with high grade dysplasia 08/11/2024 7:30 AM CDT documented as of this encounter Visit Diagnoses Not on filedocumented in this encounter Care Teams Metal Miner Relationship Specialty Start Date End Date Fidel De La Fuente MD [address] [address] PCP - General Family Medicine 09/12/18 Emery Redding DO [address] [place] [id number] Medical Oncologist/Digital Media Sales Consultant Hematology and Oncology 09/19/18 Fidel Lassiter MD [address] [place] [phone] Radiation Oncologist Radiation Oncology 09/19/18 Yfn Ventura MD [address] [place] [address] Dermatology 03/21/21 Arianne Berry MD [address] [facility] [address] [place], [place] [phone] Consulting Physician Critical Care Med 03/15/22 documented as of this encounter
--- OUTSIDE RECORDS SUMMARY | 2024-08-06 15:41 | XMS_ITS | Clinical Summary ---
Author Organization [facility] Address [address] [facility] [place] [address] Care Team Providers Care Video Game Designer Name Role Phone Fidel De La Fuente MD Primary Care Provider [phone] Source Comments [facility],non-owned Affiliates and Associated Physician Practices is amultiple site organization consisting of ambulatory clinics and hospital sitesin [place], [place], [place] and [place]. This disclosure is being madepursuant to the Care Everywhere program and may not contain all information available regarding this patient. Last updated 17.[facility] Social History Tobacco Use Types Packs/Day Years Used Date Smoking Tobacco: Never Assessed Sex and Gender Information Value Date Recorded Sex Assigned at Not on file Legal Sex Male 4:34 AM FOUNDATION RELATIONS MANAGER Gender Identity Not on file Sexual Orientation Not on file Plan of Treatment Health Maintenance Due Date Last Done Comments DTAP/TDAP/TD VACCINES (1 - Tdap) 10/24/1962 PNEUMOCOCCAL VACCINE 50+ (1 of 1 - PCV) 10/24/1993 ZOSTER VACCINE (1 of 2) 10/24/1993 Respiratory Syncytial Virus (RSV) Vaccine Pt: or over 60 yrs (1 - 1-dose 75+ series) 10/24/2018 COVID-19 VACCINE ( - 2023-2 5 season) 2023 DEPRESSION SCREENING 02/27/2024 MEDICARE AWV CALENDAR YEAR 2024 INFLUENZA VACCINE (Season Ended) 2024 HEPATITIS B VACCINE Aged Out No longe r eligible based on patient's age to complete this topic HIB VACCINE Aged Out No longer eligi ble based on patient's age to complete this topic HPV VACCINE Aged Out No longer eligi ble based on patient's age to complete this topic MENINGOCOCCAL (Group B) VACC INE SHARED DECISION-MAKING Aged Out No longer eligibl e based on patient's age to complete this topic MENINGOCOCCAL GROUPS A/C/Y/W VACCINE Aged Out No longer eligible b ased on patient's age to complete this topic Insurance [employer] SELF PAY NO INSURANCE Member Subscriber Plan / Payer (Ef fective for All Dates) Name:Jonathan Sanchez Jr Member ID:Not on file Relation to Subscriber:Not on file Name:JONATHAN SANCHEZ JR Subscriber ID:Not on file (Home) Address: [address] [place] [phone] Payer ID:Not on file Group ID:Not on file Type:Self Pay Address: [facility] MANAGED MEDICARE ADV Care Teams Video Game Designer Relationship Specialty Start Date End Date Fidel De La Fuente MD [address] [place] [address] PCP - General 09/09/18
--- OUTSIDE RECORDS SUMMARY | 2024-08-06 15:41 | XMS_ITS | Clinical Summary ---
Author Organization [facility] Address [address] [place] [address] Care Team Providers Care Utility Worker [place] [place] Name Role Phone Fidel De La Fuente MD Primary Care Provider Emery Redding DO Unavailable [phone] Fidel Lassiter MD Unavailable [phone] Yfn Ventura MD Unavailable [phone] Arianne Berry MD Unavailable [phone] Allergies Active Allergy Reactions Criticality Noted Date [...] (09/30/2018): Added automatically from request for surgery [id number] Malignant neoplasm of lower third of esophagus 0 09/09/2018 Overview (09/09/2018): Added automatically from request for surgery [id number] Encounters Date Type Department Care Team Description 07/17/2024 Telephone [facility] G[facility] [address] [place] [address] Medical Office Building 4, [address] [place] [phone] Rabia Echevarria RN 06/19/2024 2:00 PM CDT Office Visit [facility] [address] [place] [address] [address] [place] [phone] Emery Redding DO Malignant neoplasm of lower third of esophagus (HCC) (Primary Dx); Rk marginal zone B-cell lymphoma (HCC); Diffuse large B-cell lymphoma, unspecified body region (HCC) 06/19/2024 1:45 PM CDT Clinical Support [facility] at [address] [address] Malignant neoplasm of lower third of esophagus (HCC); Diffuse large B-cell lymphoma, unspecified body region (HCC) 06/16/2024 Telephone [facility] [address] [facility] Medical Office Building 4, [address] [place] [phone] Rabia Echevarria RN GI preprocedure 6.06/12/2024 1:35 PM CDT - 06/12/2024 11:59 PM CDT Hospital Encounter [facility] Medical Office Building [address] [address] Malignant neoplasm of lower third of esophagus (HCC); Diffuse large B-cell lymphoma, unspecified body region (HCC) Discharge Disposition: Discharge to home or self care 05/08/2024 Results Follow-Up [facility] G[facility] Medical Office Building [address], [address] [place] [phone] Rabia Echevarria RN Surgical pathology from Last 3 Months Immunizations Immunization Administration Dates Next Due Influenza, Trivalent, Adjuvanted, Intramuscular 01/04/2018 Pfizer SARS-CoV-2 Monovalent Vaccination (12+ Yrs) PURPLE 05/21/2020,04/30/2020 Tdap 09/12/2019 Surgical History Surgery Date Site/Laterality Comments UPPER GASTROINTESTINAL ENDOSCOPY ROTATOR CUFF REPAIR Left COLONOSCOPY LIPOMA RESECTION PERCUTANEOUS NEEDLE BIOPSY MUSCLE 09/27/2018 N/A Medical History Medical History Date Comments Bladder infection Hypertension GERD (gastroesophageal reflux disease) Dysphagia Bronchitis TIA (transient ischemic attack) 2003 Anxiety Esophageal cancer (HCC) Seasonal rhinitis Nosebleed Heart disease Obesity Morrison esophagus Atrial fibrillation (HCC) Depression Colon polyp Kidney stone Arthritis Cataract Esophageal adenocarcinoma (HCC) Lung cancer (HCC) Family History Medical History Relation Name Comments Leukemia Brother Lung cancer Father Stroke Mother Lymphoma Sister Colon cancer Neg Hx Relation Name Status Comments Brother Father (Age 78) dx 70 Mother Sister Social History Tobacco Use Types Packs/Day Years [...] on file Legal Sex Male 2:18 AM 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 PATIENT 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 Gender Identity Not on file Sexual Orientation Not on file 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 Industry Job Start 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 Job End 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 [employer] Not on file Not on file Not on file Obstetrics History Last Filed Vital Signs Vital Sign Reading [...] Description 08/11/2024 7:30 AM CDT Hospital Encounter [address] [phone] Uriel Meredith MD [address] [facility] [place] [address] 08/11/2024 7:30 AM CDT - 08/11/2024 8:00 AM CDT Surgery [address] [address] Uriel Meredith MD [address] [facility] [place] [address] EGD w/Hybrid APC Scheduled Procedures Name Priority Associated Diagnoses Date/Ti me ESOPHAGOGASTRODUODENOSCOPY Morrison's esophagus with high grade dysplasia 08/11/2024 7:30 AM CDT Health Maintenance Due Date Last Done Comments Depression Screening 1945 Hepatitis B Screening 10/24/1961 Zoster Vaccine (1 of 2) 10/24/1962 Well Visit 65+ 10/24/2008 Pneumococcal vaccine 65+ (2 of 2 - PPSV23) 02/04/2015 12/10/2014 Covid-19 Vaccine (3 - Pfizer risk series) 06/18/2020 05/21/2020, 04/30/2020 Influenza Vaccine (Season Ended) 2024 01/05/2021, 12/07/2019, 01/04/2018, Additional history exists Fall Risk Assessment 05/05/2025 05/05/2024 DTaP/Tdap/Td Vaccine (2 - Td or Tdap) 09/11/2029 09/12/2019 Abdominal Aortic Aneurysm (A AA) Screen Completed 06/12/2024, 03/12/2024, 12/07/2023, Additional history exists Medical Devices Implanted Type Area Recreation Superintendent Device Identifier Shelf Expiration Date Model / [...] glomerular filtration rate is determined by the 2020 CKD-EPI equation recommended by the National Kidney Foundation (A Unifying Approach to GFR Estimation: Recommendations of the NKF-ASK Task Force on Reassessing the Inclusion of Race in Diagnosing Kidney Disease, JASN 2020). The CKD-EPI equation should not be used for patients with unstable renal function and has not been validated in children and those over 70. Current interpretive data was last reviewed 2020. Testing performed by: [facility], [address] [place] [address], [place]., [address] Blood 06/19/2024 1:34 PM CDT 06/19/2024 1:35 PM CDT Hilary Nievesmack GASOLINE TRUCK OPERATOR LAB BLOOD ORDERABLES Final Result [facility] [address] [facility] Department [place] [address] * (ABNORMAL) Differential, auto (06/19/2024 1:34 PM CDT) Neutrophil abs 3.63 1.50 - 6.50 K/cumm Comment:Testing performed by : [address] [address] Imm gran abs 0.03 0.00 - 0.10 K/cumm GHANSHYAM Comment:Testing performed by : [address] [address] Lymphocyte abs 0.73(L) 0.80 - 3.30 K/cumm GHANSHYAM Comment:Testing performed by : [address] [address] Monocyte abs 0.64 0.20 - 0.80 K/cumm GHANSHYAM Comment:Testing performed by : [address] [address] Eosinophil abs 0.12 0.00 - 0.50 K/cumm GHANSHYAM Comment:Testing performed by : [address] [address] Basophil abs 0.03 0.00 - 0.10 K/cumm GHANSHYAM Comment:Testing performed by : [address] [address] Neutrophil pct 70.0 % GHANSHYAM Comment: Interpretive Data Percent cell count reference ranges are not reported, since discordance with absolute values may lead to misinterpretation of CBC data. Current Interpretive Data was last revised on 2017. Testing performed by: [address] [address] Imm gran pct 0.6 % GHAN[facility]YAM Comment: Interpretive Data Percent cell count reference ranges are not reported, since discordance with absolute values may lead to misinterpretation of CBC data. Current Interpretive Data was last revised on 2017. Testing performed by: [address] [address] Lymphocyte pct 14.1 % GHAN[facility]YAM Comment: Interpretive Data Percent cell count reference ranges are not reported, since discordance with absolute values may lead to misinterpretation of CBC data. Current Interpretive Data was last revised on 2017. Testing performed by: [address] [address] Monocyte pct 12.4 % GHAN[facility]YAM Comment: Interpretive Data Percent cell count reference ranges are not reported, since discordance with absolute values may lead to misinterpretation of CBC data. Current Interpretive Data was last revised on 2017. Testing performed by: [address] [address] Eosinophil pct 2.3 % GHAN[facility]YAM Comment: Interpretive Data Percent cell count reference ranges are not reported, since discordance with absolute values may lead to misinterpretation of CBC data. Current Interpretive Data was last revised on 2017. Testing performed by: [address] [address] Basophil pct 0.6 % GHAN[facility]YAM Comment: Interpretive Data Percent cell count reference ranges are not reported, since discordance with absolute values may lead to misinterpretation of CBC data. Current Interpretive Data was last revised on 2017. Testing performed by: [address] [address] Blood 06/19/2024 1:34 PM CDT 06/19/2024 1:35 PM CDT Hilary Mistry GASOLINE TRUCK OPERATOR LAB BLOOD ORDERABLES Final Result [facility] [address] [facility] Department [place] [address] * (ABNORMAL) CBC with auto differential (06/19/2024 1:34 PM CDT) WBC 5.18 3.80 - 9.90 K/cumm Comment:Testing performed by : [address] [address] Hgb 12.4(L) 13.0 - 17.5 g/dL GHANSHYAM HOLT Comment:Testing performed by : [address] [address] Hct 36.8(L) 38.9 - 50.3 % GHANSHYAM Comment:Testing performed by : [address] [address] Plt 124(L) 150 - 400 K/cumm GHANSHYAM Comment:Testing performed by : [address] [address] MPV 9.1 9.1 - 12.3 fL [facility]AM Comment:Testing performed by : [address] [address] RBC 3.98(L) 4.30 - 5.80 M/cumm GHANSHYAM Comment:Testing performed by : [address] [address] MCV 92.5 81.3 - 96.4 fL [facility]AM Comment:Testing performed by : [address] [address] MCH 31.2 27.1 - 33.3 pg GHAN[facility]YAM Comment:Testing performed by : [address] [address] MCHC 33.7 32.3 - 35.7 g/dL GHAN[facility]YAM Comment:Testing performed by : [address], [address] RDW CV 13.5 11.1 - 14.9 % GHAN[facility]YAM Comment:Testing performed by : [address] [address] RDW SD 44.8 35.7 - 48.1 fL [facility]AM Comment:Testing performed by : [address] [address] NRBC abs 0.00 0.00 - 0.01 K/cumm GH[facility]YAM Comment:Testing performed by : [address] [address] ANC Prelim 3.63 1.50 - 6.50 K/cumm GHANSHYAM Comment: Interpretive Data The rapid ANC is a preliminary automated count and may vary from the final ANC (Neut Abs) reported in the WBC differential that follows. Current interpretive data was last revised 2024. Testing performed by: [address] [address] Blood 06/19/2024 1:34 PM CDT 06/19/2024 1:35 PM CDT Hilary Mistry GASOLINE TRUCK OPERATOR LAB BLOOD ORDERABLES Final Result Performing Organization Address [facility] Co de Phone Number [address] [address] * Lactate dehydrogenase (LD) (06/19/2024 1:34 PM CDT) Lactate dehydrogenase (LDH) 208 100 - 250 Units/L Comment:Testing performed by : [address] [address] Blood 06/19/2024 1:34 PM CDT 06/19/2024 1:35 PM CDT Hilary Mistry GASOLINE TRUCK OPERATOR LAB BLOOD ORDERABLES Final Result Performing Organization Address [facility] de Phone Number [address] [address] * Comprehensive metabolic panel (06/19/2024 1:34 PM CDT) Sodium 138 135 - 145 mmol/L Comment:Testing performed by : [address] [address] Potassium, pl 4.1 3.3 - 4.9 mmol/L GHANSHYAM Comment:Testing performed by : [address] [address] Chloride 103 97 - 110 mmol/L GH[facility]YAM Comment:Testing performed by : [address] [address] CO2 24 22 - 32 mmol/L GHAN[facility]YAM Comment:Testing performed by : [address] [address] Anion gap 11 2 - 15 mmol/L GH[facility]AM Comment:Testing performed by : [address] [address] BUN 13 6 - 25 mg/dL GH[facility]YAM Comment:Testing performed by : [address] [address] Creatinine 1.00 0.80 - 1.30 mg/dL GH[facility]YAM Comment:Testing performed by : [address] [address] Glucose 119 70 - 199 mg/dL GH[facility]YAM Comment: Interpretive Data Fasting glucose >/= 126 [...] classification and Diagnosis of Diabetes Diabetes Care 2021; 46: S19-S40. Current interpretive data was last revised 2022. Testing performed by: [address] [address] Calcium 8.9 8.5 - 10.3 mg/dL GH[facility]AM Comment:Testing performed by : [address] [address] Bilirubin, total 0.3 0.1 - 1.2 mg/dL [facility]AM Comment:Testing performed by : [address] [address] Protein, pl 7.0 6.5 - 8.5 g/dL [facility]AM Comment:Testing performed by : [address] [address] Albumin 3.8 3.5 - 5.0 g/dL [facility]AM Comment:Testing performed by : [address] [address] Alk phos 112 40 - 130 Units/L [facility]AM Comment:Testing performed by : [address] [address] ALT 9 7 - 55 Units/L [facility]AM Comment:Testing performed by : [address] [address] AST 16 10 - 50 Units/L [facility] HOLT Comment:Testing performed by : [facility], [address] [place] [address], [place]., [address] Blood 06/19/2024 1:34 PM CDT 06/19/2024 1:35 PM CDT us Hilary Mistry NP LAB BLOOD ORDERABLES Final Result [facility] HOLT [address] [facility] Department [place] [address] * CT Chest Abdomen Pelvis W Contrast [...] Elias Kelly M.D. AG: MICAH Report ID: [id number] Reading Location: [id number] Procedure Note Elias Kelly MD - 06/17/2024 [...] Elias Kelly M.D. AG: MICAH Report ID: [id number] Reading Location: [place] [address] Hilary Mistry GASOLINE TRUCK OPERATOR IMG CT PROCEDURES Fi nal Result * POCT creatinine for contrast evaluation (06/12/2024 1:54 PM CDT) Creatinine POC 1.30 0.80 - 1.30 mg/dL Comment:Testing performed by : [facility], [address] [place] [address]., [address] Blood 06/12/2024 1:54 PM CDT 06/12/2024 1:54 PM CDT Hilary Mistry NP POINT OF CARE TEST O RDERABLES Final Result [facility] [address] [facility] Department [place] [address] from Last 3 Months Insurance [facility] MEDICARE [facility] MED[facility] Address: [address] [address] [place] [address] FORMERLY [facility] MEDICARE [facility], [facility] MEDIC[facility] Address: [facility] [id number] [place] [address] MEDICARE [facility] MED[facility] Address: [address] [address] [place] [address] [facility] MEDICARE [facility] Address: [facility] [address] [place] [address] Advance Directives For more information, please contact: [phone] * Full Code (Latest Code Status on [...] 11:58 AM 03/28/2022 5:06 AM Care Teams Utility Worker [employer] Relationship Specialty Start Date End Date Fidel De La Fuente MD [address] [facility] [address] [place] [address] PCP - General Family Medicine 09/12/18 Emery Redding DO [address] [place] [address] Medical Oncologist/Analytics Manager Hematology and Oncology 09/19/18 Fidel Lassiter MD [address] [place] [address] Radiation Oncologist Radiation Oncology 09/19/18 Yfn Ventura MD [address] [place] [address] Dermatology 03/21/21 Arianne Berry MD [address] [place], [place] [id number] Consulting Physician Critical Care Med 03/15/22
== END 2024-08-06 13:28 | disposition home or self-care (01) ==
PROVIDERS: PCP Family Medicine; Visit Provider Family Medicine
DX: I65.23 Occlusion and stenosis of bilateral carotid arteries (principal)
CPT/HCPCS: 93880